=== PATIENT | female | born 1990 | race Caucasian/White ===

== ENCOUNTER 2020-07-29 10:21 | Emergency (ER) | payer OTHER, SELFPAY ==
[2020-07-29 10:28] VITALS: BP 120/70; PULSE 102; RESP 24; TEMP 36.7; O2SAT 99; BMI 31.2
[2020-07-29] MEDS: 0.9 % Sodium Chloride 1,000 ML 999 ML IVCONT (10:49)
--- NOTE | 2020-07-29 10:59 | CT_ITS ---
EXAMINATION: CT ABDOMEN AND PELVIS WITH CONTRAST CLINICAL INFORMATION: Right upper quadrant pain, nausea and vomiting COMPARISON: None TECHNIQUE: Multidetector volumetric images were obtained from the superior aspect of the liver through the pubic symphysis following administration 85 mL ofOmnipaque 350 intravenous contrast. Sagittal and coronal reformatted images were obtained on the technologist's workstation. Oral contrast: Yes This CT examination was performed using dose optimization techniques as appropriate, variously including the following: *Automated exposure control *Adjustment of mA and/or kV according to patient size (this includes techniques or standardized protocols for targeted exams where dose is matched to indication/reason for exam; i.e. extremities or head) *Use of iterative reconstruction technique DLP: 519 mGy-cm FINDINGS: LUNG BASES: The visualized lung bases are unremarkable. LIVER, GALLBLADDER, AND BILIARY TREE: The liver is normal in size, shape, and attenuation. No focal hepatic lesion or biliary ductal dilatation is present. The gallbladder is unremarkable with no evidence of radiopaque gallstones, gallbladder wall thickening, or obvious pericholecystic inflammatory changes. PANCREAS: Unremarkable. SPLEEN: Unremarkable. ADRENAL GLANDS: Unremarkable. KIDNEYS AND URETERS: The kidneys are normal in size, shape, and attenuation. No hydronephrosis, hydroureter, or calculi seen. No perinephric stranding. BLADDER: Unremarkable. GASTROINTESTINAL TRACT: There is mild wall thickening of the distal right colon, hepatic flexure and proximal transverse colon and prominent vascularity/prominent vasa recta suggestive of mild colitis. The small and large bowel is otherwise unremarkable. No evidence of obstruction, perforation or abscess is seen. The appendix is normal. The stomach is normal. ABDOMINAL WALL: No significant hernia is appreciated. LYMPH NODES: There are small lymph nodes in the small bowel mesentery. No enlarged lymph nodes are seen. There is no ascites. VASCULAR: Unremarkable. PELVIC VISCERA: Unremarkable. OSSEOUS STRUCTURES: There is degenerative disc disease at L4-L5. CT/CT abdomen pelvis w con IMPRESSION: Mild colitis of the proximal colon
[2020-07-29] MEDS: Morphine Sulfate 4 MG/ML CARTRIDGE IVPUSH (11:05)
[2020-07-29] MEDS: ondansetron HCL 4 MG/2 ML VIAL IVPUSH (11:05)
[2020-07-29 11:09] LABS: Basophils Percent Auto 0.2 % (0-2); Hematocrit 39.5 % (37-47); Hemoglobin 14.1 g/dl (12.0-16.0); Imm Gran Abs Auto 0.17 X10*3/uL (0.00-0.03); Imm Gran Pct Auto 0.7 % (0.0-0.4); Lymphocytes Percent Auto 6.6 % (20-40); Mean Corpuscular HGB Conc 35.7 g/dl (31.0-35.0); Mean Corpuscular Hemoglobin 32.8 pg (27.0-33.0); Mean Corpuscular Volume 91.9 fL (80-98); Mean Platelet Volume 8.7 fL (9.4-12.3); Monocytes Percent Auto 4.4 % (2-11); Neutrophils Absolute Auto 20.3 X10*3/uL (2.0-8.3); Neutrophils Percent Auto 88.1 % (45-73); Platelet Count 410 X10*3/uL (160-400); Red Cell Distribution Width 11.9 % (11.0-16.0)
[2020-07-29 11:10] LABS: Lymphocytes Absolute Auto 1.5 X10*3/uL (1.2-4.9); MANUAL DIFF FLAG SCAN; SCAN SMEAR FLAG 1
[2020-07-29 11:12] LABS: Prothrombin Time 12.4 SEC (10.8-13.0)
--- NOTE | 2020-07-29 11:28 | ED_ITS ---
HPI - Abdominal Pain General Chief Complaint: Abdominal Pain Stated Complaint: abd pain, vomiting Time Seen by Provider: 07/29/20 10:52 Source: patient Mode of arrival: ambulatory Limitations: no limitations History of Present Illness HPI narrative: 30yoF c No Sig PMHx or PSHx presenting to the ED c c/oi luq/ abd pain c associated N.V since 4 am. Reports she was drinking hard liquor all night. Denies recent travel or sick contacts. Denies any other symptoms complaints or concerns. Denies bad food exposure. Related Data Home Medications Medication Instructions Recorded Confirmed albuterol sulfate 2.5 mg INHALATION Q4H PRN 07/29/20 albuterol sulfate [ProAir HFA] 2 puff INHALATION Q4H PRN 07/29/20 07/29/20 fluticasone propion-salmeterol 1 inh INHALATION BID 07/29/20 [Advair Diskus] montelukast 10 mg PO BEDTIME 07/29/20 07/29/20 multivitamin [Hair,Nails and Skin 1 tab PO DAILY 07/29/20 07/29/20 Vitamin] Previous Rx's Medication Instructions Recorded naproxen 500 mg PO BID PRN #10 tab 07/29/20 ondansetron HCl [Zofran] 4 mg PO Q6H PRN #10 tab 07/29/20 oxycodone-acetaminophen [Percocet] 1 tab PO Q6H PRN #10 tab 07/29/20 Allergies Allergy/AdvReac Type Severity Reaction Status Date / Time No Known Allergies Allergy Verified 07/29/20 10:32 [No Known Allergies*] Review of Systems Review of Systems Constitutional : No Fever, No Chills Cardiovascular : No Chest Pain, No SOB Respiratory : No Cough, No Sputum Gastrointestinal : + Nausea, + Vomiting, + abdominal pain, No Diarrhea, No Hematochezia, No Melena Genitourinary : no irregular bleeding, No Dysuria, No Urinary Frequency, No Hematuria, No Urinary Incontinence, No Urgency, No Flank Pain Musculoskeletal : No joint pain, No Myalgias, No Joint Swelling Skin : No Skin Lesions, No rash Neuro : No Weakness, No Headache Heme/Lymph: No Lymphadenopathy Endocrine : No Temperature Intolerance Yes all other systems are reviewed and are negative Physical Exam Vital Signs: Vital Signs: Vital Signs Temp Pulse Resp BP Pulse Ox 07/29/20 10:28 98.0 F 102 H 24 H 120/70 99 Body Mass Index 31.2 vital signs have been reviewed as normal and appeared to be correct. Blood pressure normal. Heart rate normal. Respiration rate normal. Temperature normal. Oxygen saturation normal. Appearance: Alert. Oriented X3. very anxious reporting severe pain. Otherwise in no other acute distress. Head: Normal external exam. Normocephalic. Eyes: PERRLA. EOMI. Conjunctiva and sclera normal. Eyelids normal. ENT: Pharynx normal. Uvula midline. Moist mucous membranes. Neck: Normal inspection. Neck supple. FROM. No meningeal signs. CVS: Normal heart rate and rhythm. Heart sound normal. No murmurs noted. Pulses normal throughout. Respiratory: No respiratory distress. Painless inspiration. Breath sounds normal. No wheezes/rales/rhonchi noted. Chest nontender. No accessory muscle usage noted or decreased air movement noted. Abdomen: Soft and TTP of luq and diffusely throughout. Bowel sounds normal in all 4 quadrants. No distention noted. No organomegaly noted. No visible injury noted. Back: No CVA tenderness. Full range of motion noted. Skin: Skin warm and dry. Normal skin color. Normal skin turgor. No rashes/lesions/lacerations noted. Extremities: Extremities exhibit normal range of motion. Extremities nontender. Neuro: Oriented X 3. No motor deficit. No sensory deficit. Reflexes normal. Course Course Course Narrative: 11AM 30yoF c No Sig PMHx or PSHx presenting to the ED c c/oi luq/ abd pain c associated N.V since 4 am. Reports she was drinking hard liquor all night. - Concern for pancreatitis versus cholecystitis - Plan: Labs, blood cultures, lactic acid, ct scan of abd/pelvis c IV contrast. Provide a L of IV fluids, 4 mg of Zofran, 4 mg of morphine and 25 mg of Benadryl and 3/375 mg og zosyn due to tachycardia and tachypnea then re-evaluate. Although I do not believe this is sepsis most likely related to alcohol intake, dehydration, multiple episodes of N/V along with anxiety. Reevaluation(s) Reevaluation #1: Patient in room in no apparent distress. Reports she is more comfortable after the [place] [address]. Carbon Dioxide at 15. Anion Gap at 26. Although ETOH level <10 and blood glucose is 115. lactic acid returned at 4.2. - Although again I do not believe this is sepsis I believe this is alcohol induced dehydration (alcoholic ketoacidosis) c cyclic vomiting. - Patient already received 1 L of IV fluids I will give D 50 normal saline at 100 hour and obtain the acetone level along with a venous blood glass then re-evaluate. Time: 12:05 Reevaluation #2: - CT scan revealed mild colitis otherwise the rest of the scan was within normal limits including the pancreas. - awaiting VBG and acetone will re-evaluate. Time: 13:18 Reevaluation #3: - Venous blood gas within normal limits. Awaiting acetone level. - patient is tolerating p.o. has as for toro all twice already. Will continue to allow patient to eat and drink and will recheck a chemistry for anion gap and carbon dioxide levels. Patient understands agrees with this plan. Time: 13:35 Additional Reevaluation(s): Repeat basic metabolic panel has improved patient's carbon dioxide is now at 23 and anion gap at 15 therefore within normal limits. Patient is tolerating p.o.. Comfortable with p.o. oxycodone. Patient was offered admission although she had declined. Will DC home with symptomatic treatment along with instructions to return if any new or worsening symptoms to follow with primary care provider. MDM - Abdominal Pain Medical Records Attestation: I reviewed the patient's medical records. Lab Data Attestation: I reviewed the patient's lab results. Result diagrams: 07/29/20 11:07/29/20 14:44 Labs: Lab Results 07/29/20 07/29/20 07/29/20 Range/Units 11:01 11: 11: WBC 23.0 H (4.8-10.8) X10*3/uL RBC 4.30 (4.20-5.50) X10*6/uL Hgb 14.1 (12.0-16.0) g/dl Hct 39.5 (37-47) % MCV 91.9 (80-98) fL MCH 32.8 (27.0-33.0) pg MCHC 35.7 H (31.0-35.0) g/dl RDW 11.9 (11.0-16.0) % Plt Count 410 H (160-400) X10*3/uL MPV 8.7 L (9.4-12.3) fL Immature Gran % (Auto) 0.7 H (0.0-0.4) % Neut % (Auto) 88.1 H (45-73) % Lymph % (Auto) 6.6 L (20-40) % [place] % (Auto) 4.4 (2-11) % Eos % (Auto) 0.0 (0-4) % Baso % (Auto) 0.2 (0-2) % Lymph # (Auto) 1.5 (1.2-4.9) X10*3/uL [place] # (Auto) 1.0 (0.1-1.2) X10*3/uL Eos # (Auto) 0.0 (0.0-0.4) X10*3/uL Baso # (Auto) 0.0 (0.0-0.2) X10*3/uL Abs Immat Gran (auto) 0.17 H (0.00-0.03) X10*3/uL Absolute Neuts (auto) 20.3 H (2.0-8.3) X10*3/uL Absolute Nucleated RBC 0.000 (0.0-0.012) X10*3/uL Nucleated RBC % (auto) 0.0 (0.0-0.2) /100WBC Smear Tech's Comments VERIFIED PT 12.4 (10.8-13.0) SEC INR 1.0 (0.9-1.1) VBG pH (7.32-7.43) VBG pCO2 mmhg VBG Oxygen Liters/Min VBG pO2 mmhg VBG HCO3 mmol/L VBG O2 Saturation % VBG Base Excess mmol/L Sodium 144 (135-145) mmol/L Potassium 4.4 (3.3-5.1) mmol/l Chloride 107 (96-108) mmol/L Carbon Dioxide 15 L (22-29) mmol/L Anion Gap 26 H (12-20) BUN 15 (9-16) mg/dL Creatinine 0.81 (0.5-1.4) mg/dL Estim Creat Clear Calc 88.7 Estimated GFR > 60 Random Glucose 115 (60-115) mg/dL Lactic Acid (0.5-2.0) mmol/L Lactic Acid Fup @ 2Hr (0.5-2.0) mmol/L Calcium 9.5 (8.4-10.2) mg/dL Magnesium 1.7 (1.6-2.6) mg/dL Total Bilirubin 0.3 (0.0-1.0) mg/dL Direct Bilirubin 0.2 (0.0-0.5) mg/dL AST 32 H (5-31) U/L ALT 22 (0-31) U/L Alkaline Phosphatase 67 (39-117) U/L Lactate Dehydrogenase Cancelled Total Protein 8.9 H (6.5-8.0) g/dL Albumin 5.0 (3.5-5.0) g/dL Amylase 45 (28-100) U/L Lipase 14 (8-78) U/L Beta HCG, Quant < 2 mIU/mL Urine Color Urine Appearance Urine pH (5.0-8.0) Ur Specific [place] (1.005-1.025) Urine Protein (NEG-TRACE) MG/DL Urine Glucose (UA) (NEG) MG/DL Urine Ketones (NEG) MG/DL Urine Blood (NEG) Urine Nitrite (NEG) Ur Leukocyte Esterase (NEG) Urine RBC (0) /HPF Urine WBC (0-4) /HPF Ur Squamous Epith Cells /LPF Urine Bacteria /LPF Urine Opiates Screen (Not Detect) Ur Barbiturates Screen (Not Detect) Ur Phencyclidine Scrn (Not Detect) Ur Amphetamines Screen (Not Detect) U Benzodiazepines Scrn (Not Detect) Urine Cocaine Screen (Not Detect) U Marijuana (THC) Screen (Not Detect) Ethyl Alcohol mg/dL Acetone, Qual (Negative) 07/29/20 07/29/20 07/29/20 Range/Units 11:04 11:22 11:22 WBC (4.8-10.8) X10*3/uL RBC (4.20-5.50) X10*6/uL Hgb (12.0-16.0) g/dl Hct (37-47) % MCV (80-98) fL MCH (27.0-33.0) pg MCHC (31.0-35.0) g/dl RDW (11.0-16.0) % Plt Count (160-400) X10*3/uL MPV (9.4-12.3) fL Immature Gran % (Auto) (0.0-0.4) % Neut % (Auto) (45-73) % Lymph % (Auto) (20-40) % [place] % (Auto) (2-11) % Eos % (Auto) (0-4) % Baso % (Auto) (0-2) % Lymph # (Auto) (1.2-4.9) X10*3/uL [place] # (Auto) (0.1-1.2) X10*3/uL Eos # (Auto) (0.0-0.4) X10*3/uL Baso # (Auto) (0.0-0.2) X10*3/uL Abs Immat Gran (auto) (0.00-0.03) X10*3/uL Absolute Neuts (auto) (2.0-8.3) X10*3/uL Absolute Nucleated RBC (0.0-0.012) X10*3/uL Nucleated RBC % (auto) (0.0-0.2) /100WBC Smear Tech's Comments PT (10.8-13.0) SEC INR (0.9-1.1) VBG pH (7.32-7.43) VBG pCO2 mmhg VBG Oxygen Liters/Min VBG pO2 mmhg VBG HCO3 mmol/L VBG O2 Saturation % VBG Base Excess mmol/L Sodium Cancelled (135-145) mmol/L Potassium Cancelled (3.3-5.1) mmol/l Chloride Cancelled (96-108) mmol/L Carbon Dioxide Cancelled (22-29) mmol/L Anion Gap Cancelled (12-20) BUN Cancelled (9-16) mg/dL Creatinine Cancelled (0.5-1.4) mg/dL Estim Creat Clear Calc Cancelled Estimated GFR Cancelled Random Glucose Cancelled (60-115) mg/dL Lactic Acid 4.2 H* (0.5-2.0) mmol/L Lactic Acid Fup @ 2Hr (0.5-2.0) mmol/L Calcium Cancelled (8.4-10.2) mg/dL Magnesium Cancelled (1.6-2.6) mg/dL Total Bilirubin Cancelled (0.0-1.0) mg/dL Direct Bilirubin Cancelled (0.0-0.5) mg/dL AST Cancelled (5-31) U/L ALT Cancelled (0-31) U/L Alkaline Phosphatase Cancelled (39-117) U/L Lactate Dehydrogenase Total Protein Cancelled (6.5-8.0) g/dL Albumin Cancelled (3.5-5.0) g/dL Amylase (28-100) U/L Lipase (8-78) U/L Beta HCG, Quant mIU/mL Urine Color Urine Appearance Urine pH (5.0-8.0) Ur Specific [place] (1.005-1.025) Urine Protein (NEG-TRACE) MG/DL Urine Glucose (UA) (NEG) MG/DL Urine Ketones (NEG) MG/DL Urine Blood (NEG) Urine Nitrite (NEG) Ur Leukocyte Esterase (NEG) Urine RBC (0) /HPF Urine WBC (0-4) /HPF Ur Squamous Epith Cells /LPF Urine Bacteria /LPF Urine Opiates Screen (Not Detect) Ur Barbiturates Screen (Not Detect) Ur Phencyclidine Scrn (Not Detect) Ur Amphetamines Screen (Not Detect) U Benzodiazepines Scrn (Not Detect) Urine Cocaine Screen (Not Detect) U Marijuana (THC) Screen (Not Detect) Ethyl Alcohol < 10 mg/dL Acetone, Qual (Negative) 07/29/20 07/29/20 07/29/20 Range/Units 13:11 13:11 13:51 WBC (4.8-10.8) X10*3/uL RBC (4.20-5.50) X10*6/uL Hgb (12.0-16.0) g/dl Hct (37-47) % MCV (80-98) fL MCH (27.0-33.0) pg MCHC (31.0-35.0) g/dl RDW (11.0-16.0) % Plt Count (160-400) X10*3/uL MPV (9.4-12.3) fL Immature Gran % (Auto) (0.0-0.4) % Neut % (Auto) (45-73) % Lymph % (Auto) (20-40) % [place] % (Auto) (2-11) % Eos % (Auto) (0-4) % Baso % (Auto) (0-2) % Lymph # (Auto) (1.2-4.9) X10*3/uL [place] # (Auto) (0.1-1.2) X10*3/uL Eos # (Auto) (0.0-0.4) X10*3/uL Baso # (Auto) (0.0-0.2) X10*3/uL Abs Immat Gran (auto) (0.00-0.03) X10*3/uL Absolute Neuts (auto) (2.0-8.3) X10*3/uL Absolute Nucleated RBC (0.0-0.012) X10*3/uL Nucleated RBC % (auto) (0.0-0.2) /100WBC Smear Tech's Comments PT (10.8-13.0) SEC INR (0.9-1.1) VBG pH 7.40 (7.32-7.43) VBG pCO2 36 mmhg VBG Oxygen Liters/Min Not Reportable VBG pO2 69 mmhg VBG HCO3 22 mmol/L VBG O2 Saturation 92.4 % VBG Base Excess -2.5 mmol/L Sodium (135-145) mmol/L Potassium (3.3-5.1) mmol/l Chloride (96-108) mmol/L Carbon Dioxide (22-29) mmol/L Anion Gap (12-20) BUN (9-16) mg/dL Creatinine (0.5-1.4) mg/dL Estim Creat Clear Calc Estimated GFR Random Glucose (60-115) mg/dL Lactic Acid (0.5-2.0) mmol/L Lactic Acid Fup @ 2Hr (0.5-2.0) mmol/L Calcium (8.4-10.2) mg/dL Magnesium (1.6-2.6) mg/dL Total Bilirubin (0.0-1.0) mg/dL Direct Bilirubin (0.0-0.5) mg/dL AST (5-31) U/L ALT (0-31) U/L Alkaline Phosphatase (39-117) U/L Lactate Dehydrogenase Total Protein (6.5-8.0) g/dL Albumin (3.5-5.0) g/dL Amylase (28-100) U/L Lipase (8-78) U/L Beta HCG, Quant mIU/mL Urine Color YELLOW Urine Appearance HAZY Urine pH 6.0 (5.0-8.0) Ur Specific [place] 1.010 (1.005-1.025) Urine Protein NEG (NEG-TRACE) MG/DL Urine Glucose (UA) NEG (NEG) MG/DL Urine Ketones 40 (NEG) MG/DL Urine Blood TRACE (NEG) Urine Nitrite NEG (NEG) Ur Leukocyte Esterase NEG (NEG) Urine RBC 1-4 (0) /HPF Urine WBC 1-4 (0-4) /HPF Ur Squamous Epith Cells 2+ /LPF Urine Bacteria NONE /LPF Urine Opiates Screen (Not Detect) Ur Barbiturates Screen (Not Detect) Ur Phencyclidine Scrn (Not Detect) Ur Amphetamines Screen (Not Detect) U Benzodiazepines Scrn (Not Detect) Urine Cocaine Screen (Not Detect) U Marijuana (THC) Screen (Not Detect) Ethyl Alcohol mg/dL Acetone, Qual Negative (Negative) 07/29/20 07/29/20 07/29/20 Range/Units 13:51 14:44 14:44 WBC (4.8-10.8) X10*3/uL RBC (4.20-5.50) X10*6/uL Hgb (12.0-16.0) g/dl Hct (37-47) % MCV (80-98) fL MCH (27.0-33.0) pg MCHC (31.0-35.0) g/dl RDW (11.0-16.0) % Plt Count (160-400) X10*3/uL MPV (9.4-12.3) fL Immature Gran % (Auto) (0.0-0.4) % Neut % (Auto) (45-73) % Lymph % (Auto) (20-40) % [place] % (Auto) (2-11) % Eos % (Auto) (0-4) % Baso % (Auto) (0-2) % Lymph # (Auto) (1.2-4.9) X10*3/uL [place] # (Auto) (0.1-1.2) X10*3/uL Eos # (Auto) (0.0-0.4) X10*3/uL Baso # (Auto) (0.0-0.2) X10*3/uL Abs Immat Gran (auto) (0.00-0.03) X10*3/uL Absolute Neuts (auto) (2.0-8.3) X10*3/uL Absolute Nucleated RBC (0.0-0.012) X10*3/uL Nucleated RBC % (auto) (0.0-0.2) /100WBC Smear Tech's Comments PT (10.8-13.0) SEC INR (0.9-1.1) VBG pH (7.32-7.43) VBG pCO2 mmhg VBG Oxygen Liters/Min VBG pO2 mmhg VBG HCO3 mmol/L VBG O2 Saturation % VBG Base Excess mmol/L Sodium 140 (135-145) mmol/L Potassium 3.9 (3.3-5.1) mmol/l Chloride 106 (96-108) mmol/L Carbon Dioxide 23 (22-29) mmol/L Anion Gap 15 (12-20) BUN 13 (9-16) mg/dL Creatinine 0.82 (0.5-1.4) mg/dL Estim Creat Clear Calc 87.6 Estimated GFR > 60 Random Glucose 153 H (60-115) mg/dL Lactic Acid (0.5-2.0) mmol/L Lactic Acid Fup @ 2Hr 2.2 H* (0.5-2.0) mmol/L Calcium 8.0 L (8.4-10.2) mg/dL Magnesium (1.6-2.6) mg/dL Total Bilirubin (0.0-1.0) mg/dL Direct Bilirubin (0.0-0.5) mg/dL AST (5-31) U/L ALT (0-31) U/L Alkaline Phosphatase (39-117) U/L Lactate Dehydrogenase Total Protein (6.5-8.0) g/dL Albumin (3.5-5.0) g/dL Amylase (28-100) U/L Lipase (8-78) U/L Beta HCG, Quant mIU/mL Urine Color Urine Appearance Urine pH (5.0-8.0) Ur Specific [place] (1.005-1.025) Urine Protein (NEG-TRACE) MG/DL Urine Glucose (UA) (NEG) MG/DL Urine Ketones (NEG) MG/DL Urine Blood (NEG) Urine Nitrite (NEG) Ur Leukocyte Esterase (NEG) Urine RBC (0) /HPF Urine WBC (0-4) /HPF Ur Squamous Epith Cells /LPF Urine Bacteria /LPF Urine Opiates Screen POSITIVE H (Not Detect) Ur Barbiturates Screen Not Detected (Not Detect) Ur Phencyclidine Scrn Not Detected (Not Detect) Ur Amphetamines Screen Not Detected (Not Detect) U Benzodiazepines Scrn Not Detected (Not Detect) Urine Cocaine Screen Not Detected (Not Detect) U Marijuana (THC) Screen POSITIVE H (Not Detect) Ethyl Alcohol mg/dL Acetone, Qual (Negative) Imaging Data CT scan - abdomen: Attestation: I personally reviewed and interpreted this imaging study as follows: Radiologist's impression: FINDINGS: LUNG BASES: The visualized lung bases are unremarkable. LIVER, GALLBLADDER, AND BILIARY TREE: The liver is normal in size, shape, and attenuation. No focal hepatic lesion or biliary ductal dilatation is present. The gallbladder is unremarkable with no evidence of radiopaque gallstones, gallbladder wall thickening, or obvious pericholecystic inflammatory changes. PANCREAS: Unremarkable. SPLEEN: Unremarkable. ADRENAL GLANDS: Unremarkable. KIDNEYS AND URETERS: The kidneys are normal in size, shape, and attenuation. No hydronephrosis, hydroureter, or calculi seen. No perinephric stranding. BLADDER: Unremarkable. GASTROINTESTINAL TRACT: There is mild wall thickening of the distal right colon, hepatic flexure and proximal transverse colon and prominent vascularity/prominent vasa recta suggestive of mild colitis. The small and large bowel is otherwise unremarkable. No evidence of obstruction, perforation or abscess is seen. The appendix is normal. The stomach is normal. ABDOMINAL WALL: No significant hernia is appreciated. LYMPH NODES: There are small lymph nodes in the small bowel mesentery. No enlarged lymph nodes are seen. There is no ascites. VASCULAR: Unremarkable. PELVIC VISCERA: Unremarkable. OSSEOUS STRUCTURES: There is degenerative disc disease at L4-L5. CT/CT abdomen pelvis w con IMPRESSION: Mild colitis of the proximal colon Critical Care Time Critical Care Time Critical Care Time: Yes Total Critical Care Time: 60 Attestation: I personally attest to this time spent taking care of the patient Discharge Plan Discharge Clinical Impression: Alcoholic ketoacidosis, Tachycardia, Leukocytosis Patient Disposition: Home, Self-Care Instructions: At-Risk Alcohol Use (ED) Prescriptions: New oxycodone-acetaminophen [Percocet] 5-325 mg tablet 1 tab PO Q6H PRN (Reason: pain) Qty: 10 RF: 0 naproxen 500 mg tablet 500 mg PO BID PRN (Reason: pain) Qty: 10 RF: 0 ondansetron HCl [Zofran] 4 mg tablet 4 mg PO Q6H PRN (Reason: nausea and vomiting) Qty: 10 RF: 0 No Action multivitamin [Hair,Nails and Skin Vitamin] Tablet 1 tab PO DAILY RF: 0 montelukast 10 mg Tablet 10 mg PO BEDTIME RF: 0 albuterol sulfate [ProAir HFA] 90 mcg/actuation Hfa Aerosol Inhaler 2 puff INHALATION Q4H PRN (Reason: Shortness Of Breath) RF: 0 albuterol sulfate 2.5 mg /3 mL (0.083 %) Solution For Nebulization 2.5 mg INHALATION Q4H PRN (Reason: Shortness Of Breath) RF: 0 fluticasone propion-salmeterol [Advair Diskus] 100-50 mcg/dose Blister With Device 1 inh INHALATION BID RF: 0 Referrals: Physician,Unknown [Primary Care Provider] - 2 days (Your primary care provider) Stand Alone Forms: Work/School Release Print Language: [place]riot [facility] Past Medical History Attestation statement: The following information was validated with the patient. Medical History No significant past medical history Surgical History No significant past surgical history Social History Social History Alcohol intake: current Alcohol intake frequency: holidays/special occasions on ly Smoking Status: Current every day smoker Use of substances other than those prescribed or required for medical reasons: No Substance Use Type: Marijuana Advance Directives: No Advance Directives Information Provided: No
[2020-07-29 11:34] LABS: SLIDE REVIEW VERIFIED
[2020-07-29 11:48] LABS: Alanine Aminotransferase 22 U/L (0-31); Alkaline Phosphatase 67 U/L (39-117); Anion Gap 26 (12-20); Aspartate Amino Transferase 32 U/L (5-31); Bilirubin Direct 0.2 mg/dL (0.0-0.5); Bilirubin Total 0.3 mg/dL (0.0-1.0); Blood Urea Nitrogen 15 mg/dL (9-16); Calcium 9.5 mg/dL (8.4-10.2); Carbon Dioxide 15 mmol/L (22-29); Chloride 107 mmol/L (96-108); Creatinine Clr Calc Pharmacy 88.7; Estimated Glomerular Filt Rate > 60; Glucose Random 115 mg/dL (60-115); HCG Quantitative < 2 mIU/mL; Magnesium 1.7 mg/dL (1.6-2.6); Potassium 4.4 mmol/l (3.3-5.1); Sodium 144 mmol/L (135-145); Total Protein 8.9 g/dL (6.5-8.0)
[2020-07-29] MEDS: Piperacillin Sodium/Tazobactam 3.375 GM in 0.9 % Sodium Chloride 50 ML IV (11:48)
[2020-07-29] MEDS: diphenhydrAMINE HCL 50 MG/ML VIAL 25 MG IVPUSH (11:48)
[2020-07-29 11:54] LABS: Ethanol < 10 mg/dL
[2020-07-29 12:00] LABS: Lactic Acid 4.2 mmol/L (0.5-2.0)
[2020-07-29 12:19] LABS: Amylase 45 U/L (28-100); Lipase 14 U/L (8-78)
[2020-07-29] MEDS: iohexoL 350 MG/ML 100 ML INFUS..BTL 85 ML IV (12:40)
[2020-07-29] MEDS: Dextrose 5 % and 0.9 % NaCl 1,000 ML 100 ML IVCONT (13:13)
[2020-07-29 13:25] LABS: Base Excess VBG -2.5 mmol/L; HCO3 VBG 22 mmol/L; PCO2 VBG 36 mmhg; PO2 VBG 69 mmhg
[2020-07-29 13:26] LABS: Blood Gas Serial # 5414; Oxygen Saturation VBG 92.4 %
[2020-07-29 13:28] LABS: Reflex Lactate? Lactic Acid Added
[2020-07-29 14:01] LABS: Acetone, serum QL Negative (Negative)
[2020-07-29 14:03] LABS: Glucose Urine UA NEG (NEG); Leukocyte Esterase Urine NEG (NEG); Nitrite Urine NEG (NEG); Urine Blood TRACE (NEG); Urine Ketones 40 MG/DL (NEG); Urine Protein NEG (NEG-TRACE)
[2020-07-29 14:06] LABS: Appearance Urine HAZY; Color Urine YELLOW
[2020-07-29 14:12] LABS: Squamous Epithelial Cell Urine 2+ /LPF
[2020-07-29] MEDS: oxyCODONE HCl Immed Release 5 MG TABLET PO (14:25)
[2020-07-29] MEDS: Ketorolac Tromethamine 15 MG/ML VIAL 30 MG IV (14:25)
[2020-07-29 14:40] LABS: Amphetamine Screen Urine Not Detected (Not Detect); Barbiturates, Urine Not Detected (Not Detect); Benzodiazepines Screen Urine Not Detected (Not Detect); Cannabinoid Screen Urine POSITIVE (Not Detect); Cocaine Screen Urine Not Detected (Not Detect); Opiate Screen Urine POSITIVE (Not Detect); Phencyclidine Screen Urine Not Detected (Not Detect)
[2020-07-29 15:14] LABS: ~Lactic Acid-LAB USE ONLY 2.2 mmol/L (0.5-2.0)
[2020-07-29 15:17] LABS: Anion Gap 15 (12-20); Blood Urea Nitrogen 13 mg/dL (9-16); Carbon Dioxide 23 mmol/L (22-29); Chloride 106 mmol/L (96-108); Creatinine Clr Calc Pharmacy 87.6; Estimated Glomerular Filt Rate > 60; Glucose Random 153 mg/dL (60-115); Potassium 3.9 mmol/l (3.3-5.1); Sodium 140 mmol/L (135-145)
[2020-07-29 16:48] LABS: Reflex Lactate? 2 Y
== END 2020-07-29 15:57 | disposition home or self-care (01) ==
PROVIDERS: Physician Assistant Medical; Emergency Provider Emergency Medicine
DX: E87.2 Acidosis (principal); R00.0 Tachycardia, unspecified; D72.829 Elevated white blood cell count, unspecified; R10.12 Left upper quadrant pain; Z79.899 Other long term (current) drug therapy; F17.200 Nicotine dependence, unspecified, uncomplicated; Z71.6 Tobacco abuse counseling
CPT/HCPCS: 36415; 74177; 80048; 80076; 80307; 80320; 81001; 81003; 82009; 82150; 82803; 83605; 83690; 83735; 84702; 85025; 85610; 87040; 96361; 96365; 96375; 99284; 99291; J1200; J1885; J2270; J2405; J2543; Q9967

== ENCOUNTER 2020-12-22 11:56 | Emergency (ER) | payer OTHER, SELFPAY ==
--- NOTE | ~2020-12-22 | XR_ITS ---
EXAMINATION: XR CHEST CLINICAL INFORMATION: Chest pain. COMPARISON: None TECHNIQUE: Frontal view of the chest was obtained. FINDINGS: No significant abnormality is noted involving the heart, lungs, mediastinum, bony thorax or soft tissues. XR/XR chest 1V IMPRESSION: Unremarkable chest examination.
[2020-12-22 12:50] VITALS: BP 104/72; PULSE 78; RESP 16; TEMP 36.7; O2SAT 99; BMI 36.6
--- NOTE | 2020-12-22 13:42 | ED.GENADULT ---
HPI - General Adult General Chief complaint: Nausea/Vomiting/Diarrhea Stated complaint: DIFF BREATHING Time Seen by Provider: 12/22/20 13:17 History of Present Illness HPI narrative: Two complaints 1 is nausea vomiting and diarrhea for 2 days, 2nd is lots of anxiety with intermittent feelings of chest tightness shortness of breath and fingers tingling as well as abdominal pain mostly when she vomits She has no abdominal pain at this point in time She also has complained of episodes of feeling anxious with chest tightness palpitations heart racing and fingers tingling At this time she has no chest pain no shortness of breath no palpitation, but does feel very anxious Related Data Home Medications Medication Instructions Recorded Confirmed albuterol sulfate 2.5 mg INHALATION Q4H PRN 07/29/20 albuterol sulfate [ProAir HFA] 2 puff INHALATION Q4H PRN 07/29/20 07/29/20 fluticasone propion-salmeterol 1 inh INHALATION BID 07/29/20 [Advair Diskus] montelukast 10 mg PO BEDTIME 07/29/20 07/29/20 multivitamin [Hair,Nails and Skin 1 tab PO DAILY 07/29/20 07/29/20 Vitamin] Previous Rx's Medication Instructions Recorded naproxen 500 mg PO BID PRN #10 tab 07/29/20 ondansetron HCl [Zofran] 4 mg PO Q6H PRN #10 tab 07/29/20 oxycodone-acetaminophen [Percocet] 1 tab PO Q6H PRN #10 tab 07/29/20 acetaminophen [Tylenol] 650 mg PO Q6H PRN #20 cap 12/22/20 famotidine [Pepcid] 20 mg PO BID #30 tab 12/22/20 loperamide [Imodium A-D] 2 mg PO Q4H PRN #10 cap 12/22/20 lorazepam [Ativan] 1 mg PO TID PRN #10 tab 12/22/20 metoclopramide HCl [Reglan] 10 mg PO Q6H PRN #10 tab 12/22/20 oxycodone-acetaminophen [Percocet] 1 tab PO Q6H PRN #7 tab 12/22/20 Allergies Allergy/AdvReac Type Severity Reaction Status Date / Time No Known Allergies Allergy Verified 07/29/20 10:32 [No Known Allergies*] Review of Systems Review of Systems: Positive for intermittent and shortness of breath and anxiety as well as nausea vomiting and diarrhea Negatives are no fever no chills no dizziness no weakness no fainting no headache no neck pain no chest pain no dysuria no burning with urination no rash no numbness no weakness PMFSH Past Medical History Source: nursing notes reviewed Medical History No significant past medical history Surgical History No significant past surgical history Social History Social History Alcohol intake: never Smoking Status: Never smoker Use of substances other than those prescribed or required for medical reasons: Yes Substance Use Type: Marijuana Substance Use Frequency: Chronic Longstanding Last Used Substance: Days (ago) Advance Directives: No Advance Directives Information Provided: No Physical Exam Vital Signs: Vital Signs: Last Vital Signs Temp 98.0 F 12/22/20 12:50 Pulse 78 12/22/20 12:50 Resp 16 12/22/20 12:50 BP 104/72 12/22/20 12:50 Pulse Ox 99 12/22/20 12:50 Body Mass Index 36.6 General appearance is no acute distress, , very anxious appearing, cooperative A&O x3 The pupils are anicteric without pallor The pharynx is clear with well-hydrated mucous membranes Neck is supple Chest is clear to auscultation bilaterally with full symmetric equal breath sounds The heart rate and rhythm regular no murmur The abdomen is soft nontender Extremities no edema, no calf tenderness or swelling, full range of motion x4 The skin no rashes Neuro no focal deficit Course Course Course Narrative: Patient felt very nauseous again in the ER and vomited so was treated with Zofran and a L of fluids with no improvement, and then she began to have burning pain in her upper stomach so meds were changed to Reglan and Pepcid with very good results as well as an Ativan for her anxiety and she felt like she had returned to normal She no longer had any feeling of anxiety she was able to tolerate p.o. without nausea she had no abdominal pain and repeat abdominal exam was negative and vital signs were normal she was discharged home with Reglan for nausea, Pepcid for if she develops any burning stomach pain, and Ativan if needed for anxiety attack No acute lab abnormality, UA was negative, she is not and a chest x-ray was normal Medical Decision Making Lab Data Lab results reviewed: Yes I reviewed the patient's lab results. Result diagrams: 12/22/20 14:20 12/22/20 14:20 Labs: Lab Results 12/22/20 12/22/20 Range/Units 14:20 14:20 WBC 19.7 H (4.8-10.8) X10*3/uL RBC 3.96 L (4.20-5.50) X10*6/uL Hgb 13.1 (12.0-16.0) g/dl Hct 36.6 L (37-47) % MCV 92.4 (80-98) fL MCH 33.1 H (27.0-33.0) pg MCHC 35.8 H (31.0-35.0) g/dl RDW 12.0 (11.0-16.0) % Plt Count 413 H (160-400) X10*3/uL MPV 8.7 L (9.4-12.3) fL Immature Gran % (Auto) 0.6 H (0.0-0.4) % Neut % (Auto) 84.6 H (45-73) % Lymph % (Auto) 6.8 L (20-40) % [place] % (Auto) 7.7 (2-11) % Eos % (Auto) 0.1 (0-4) % Baso % (Auto) 0.2 (0-2) % Lymph # (Auto) 1.4 (1.2-4.9) X10*3/uL [place] # (Auto) 1.5 H (0.1-1.2) X10*3/uL Eos # (Auto) 0.0 (0.0-0.4) X10*3/uL Baso # (Auto) 0.0 (0.0-0.2) X10*3/uL Abs Immat Gran (auto) 0.11 H (0.00-0.03) X10*3/uL Absolute Neuts (auto) 16.7 H (2.0-8.3) X10*3/uL Absolute Nucleated RBC 0.000 (0.0-0.012) X10*3/uL Nucleated RBC % (auto) 0.0 (0.0-0.2) /100WBC Smear Tech's Comments VERIFIED Sodium 143 (135-145) mmol/L Potassium 4.0 (3.3-5.1) mmol/L Chloride 107 (96-108) mmol/L Carbon Dioxide 20 L (22-29) mmol/L Anion Gap 20 (12-20) BUN 17 H (9-16) mg/dL Creatinine 0.85 (0.5-1.4) mg/dL Estim Creat Clear Calc 99.5 Estimated GFR > 60 Random Glucose 127 H (60-115) mg/dL Calcium 10.2 D (8.4-10.2) mg/dL Total Bilirubin 0.7 (0.0-1.0) mg/dL Direct Bilirubin 0.2 (0.0-0.5) mg/dL AST 22 (5-31) U/L ALT 19 (0-31) U/L Alkaline Phosphatase 73 (39-117) U/L Total Protein 8.2 H (6.5-8.0) g/dL Albumin 4.8 (3.5-5.0) g/dL Lipase 16 (8-78) U/L Discharge Plan Discharge Clinical Impression: Gastroenteritis, Anxiety, Abdominal pain Patient Disposition: Home, Self-Care Additional Instructions: Your workup today did not show any sign of any dangerous condition We treated for nausea with Reglan which controlled the vomiting, Pepcid which helped the acid pain, and Ativan which helped the anxiety Use prescriptions as directed Follow with primary doctor Return any time any worse condition or concerns Prescriptions: New famotidine [Pepcid] 20 mg tablet 20 mg PO BID Qty: 30 RF: 0 oxycodone-acetaminophen [Percocet] 5-325 mg tablet 1 tab PO Q6H PRN (Reason: pain) Qty: 7 RF: 0 lorazepam [Ativan] 1 mg tablet 1 mg PO TID PRN (Reason: anxiety) Qty: 10 RF: 0 metoclopramide HCl [Reglan] 10 mg tablet 10 mg PO Q6H PRN (Reason: nausea and vomiting) Qty: 10 RF: 0 loperamide [Imodium A-D] 2 mg capsule 2 mg PO Q4H PRN (Reason: loose stool) Qty: 10 RF: 0 acetaminophen [Tylenol] 325 mg capsule 650 mg PO Q6H PRN (Reason: pain) Qty: 20 RF: 0 No Action multivitamin [Hair,Nails and Skin Vitamin] Tablet 1 tab PO DAILY RF: 0 montelukast 10 mg Tablet 10 mg PO BEDTIME RF: 0 albuterol sulfate [ProAir HFA] 90 mcg/actuation Hfa Aerosol Inhaler 2 puff INHALATION Q4H PRN (Reason: Shortness Of Breath) RF: 0 albuterol sulfate 2.5 mg /3 mL (0.083 %) Solution For Nebulization 2.5 mg INHALATION Q4H PRN (Reason: Shortness Of Breath) RF: 0 fluticasone propion-salmeterol [Advair Diskus] 100-50 mcg/dose Blister With Device 1 inh INHALATION BID RF: 0 oxycodone-acetaminophen [Percocet] 5-325 mg tablet 1 tab PO Q6H PRN (Reason: pain) Qty: 10 RF: 0 naproxen 500 mg tablet 500 mg PO BID PRN (Reason: pain) Qty: 10 RF: 0 ondansetron HCl [Zofran] 4 mg tablet 4 mg PO Q6H PRN (Reason: nausea and vomiting) Qty: 10 RF: 0 Interventions: ED Discharge Assessment Last Done: 12/22/20 17:49 Discharge Date/Time: 12/22/20 17:52
[2020-12-22] MEDS: 0.9 % Sodium Chloride 1,000 ML 999 ML IVCONT (14:26)
[2020-12-22] MEDS: ondansetron HCL 4 MG/2 ML VIAL IVPUSH (14:26)
[2020-12-22] MEDS: LORazepam 2 MG/ML VIAL 1 MG IVPUSH (14:26)
[2020-12-22 14:36] LABS: Basophils Percent Auto 0.2 % (0-2); Eosinophils Percent Auto 0.1 % (0-4); Hematocrit 36.6 % (37-47); Hemoglobin 13.1 g/dl (12.0-16.0); Imm Gran Abs Auto 0.11 X10*3/uL (0.00-0.03); Imm Gran Pct Auto 0.6 % (0.0-0.4); Lymphocytes Absolute Auto 1.4 X10*3/uL (1.2-4.9); Lymphocytes Percent Auto 6.8 % (20-40); MANUAL DIFF FLAG SCAN; Mean Corpuscular HGB Conc 35.8 g/dl (31.0-35.0); Mean Corpuscular Hemoglobin 33.1 pg (27.0-33.0); Mean Corpuscular Volume 92.4 fL (80-98); Mean Platelet Volume 8.7 fL (9.4-12.3); Monocytes Absolute Auto 1.5 X10*3/uL (0.1-1.2); Monocytes Percent Auto 7.7 % (2-11); Neutrophils Absolute Auto 16.7 X10*3/uL (2.0-8.3); Neutrophils Percent Auto 84.6 % (45-73); Platelet Count 413 X10*3/uL (160-400); Red Blood Count 3.96 X10*6/uL (4.20-5.50); SCAN SMEAR FLAG 1; White Blood Count 19.7 X10*3/uL (4.8-10.8)
[2020-12-22 14:54] LABS: Alanine Aminotransferase 19 U/L (0-31); Albumin Level 4.8 g/dL (3.5-5.0); Alkaline Phosphatase 73 U/L (39-117); Anion Gap 20 (12-20); Aspartate Amino Transferase 22 U/L (5-31); Bilirubin Direct 0.2 mg/dL (0.0-0.5); Bilirubin Total 0.7 mg/dL (0.0-1.0); Blood Urea Nitrogen 17 mg/dL (9-16); Calcium 10.2 mg/dL (8.4-10.2); Carbon Dioxide 20 mmol/L (22-29); Chloride 107 mmol/L (96-108); Creatinine Clr Calc Pharmacy 99.5; Estimated Glomerular Filt Rate > 60; Glucose Random 127 mg/dL (60-115); Lipase 16 U/L (8-78); Sodium 143 mmol/L (135-145); Total Protein 8.2 g/dL (6.5-8.0)
[2020-12-22 15:20] LABS: SLIDE REVIEW VERIFIED
[2020-12-22] MEDS: Famotidine 20 MG TABLET PO (16:12)
[2020-12-22] MEDS: diphenhydrAMINE HCL 50 MG/ML VIAL 25 MG IVPUSH (16:22)
[2020-12-22] MEDS: Metoclopramide HCl 10 MG/2 ML VIAL IVPUSH (16:23)
[2020-12-22] MEDS: Morphine Sulfate 4 MG/ML CARTRIDGE IVPUSH (16:23)
== END 2020-12-22 17:52 | disposition home or self-care (01) ==
PROVIDERS: Physician Assistant Medical; Emergency Provider Emergency Medicine
DX: K52.9 Noninfective gastroenteritis and colitis, unspecified (principal); F41.1 Generalized anxiety disorder; F43.0 Acute stress reaction; R10.9 Unspecified abdominal pain; R07.9 Chest pain, unspecified; R06.02 Shortness of breath; R11.2 Nausea with vomiting, unspecified; Z79.899 Other long term (current) drug therapy; F12.90 Cannabis use, unspecified, uncomplicated
CPT/HCPCS: 36415; 71045; 80048; 80076; 83690; 85025; 96365; 96375; 99284; J1200; J2060; J2270; J2405; J2765

== ENCOUNTER 2021-02-20 17:15 | Emergency (ER) | payer OTHER, SELFPAY ==
[2021-02-20 17:26] VITALS: BP 143/94; PULSE 80; RESP 18; TEMP 36.8; O2SAT 98; BMI 32.2
--- NOTE | 2021-02-20 18:57 | ED.GENADULT ---
HPI - General Adult General Chief complaint: General Medical Stated complaint: dizziness Time Seen by Provider: 02/20/21 18:57 Source: patient Mode of arrival: ambulatory Limitations: no limitations History of Present Illness HPI narrative: Patient received moderate in a COVID vaccine 4 days ago complaining of headache body aches and pain at the site of injection patient been having headache prior to injection and has a history of migraine light sensitive + nausea no vomiting no fever no chills patient very anxious on arrival Related Data Home Medications Medication Instructions Recorded Confirmed albuterol sulfate 2.5 mg INHALATION Q4H PRN 07/29/20 albuterol sulfate [ProAir HFA] 2 puff INHALATION Q4H PRN 07/29/20 07/29/20 fluticasone propion-salmeterol 1 inh INHALATION BID 07/29/20 [Advair Diskus] montelukast 10 mg PO BEDTIME 07/29/20 07/29/20 multivitamin [Hair,Nails and Skin 1 tab PO DAILY 07/29/20 07/29/20 Vitamin] Previous Rx's Medication Instructions Recorded naproxen 500 mg PO BID PRN #10 tab 07/29/20 ondansetron HCl [Zofran] 4 mg PO Q6H PRN #10 tab 07/29/20 oxycodone-acetaminophen [Percocet] 1 tab PO Q6H PRN #10 tab 07/29/20 acetaminophen [Tylenol] 650 mg PO Q6H PRN #20 cap 12/22/20 famotidine [Pepcid] 20 mg PO BID #30 tab 12/22/20 loperamide [Imodium A-D] 2 mg PO Q4H PRN #10 cap 12/22/20 lorazepam [Ativan] 1 mg PO TID PRN #10 tab 12/22/20 metoclopramide HCl [Reglan] 10 mg PO Q6H PRN #10 tab 12/22/20 oxycodone-acetaminophen [Percocet] 1 tab PO Q6H PRN #7 tab 12/22/20 [id number] 1 cap PO Q6H PRN #20 cap 02/20/21 [Fioricet] sumatriptan succinate [Imitrex] 50 mg PO Q2H PRN #10 tab 02/20/21 Allergies Allergy/AdvReac Type Severity Reaction Status Date / Time No Known Allergies Allergy Verified 07/29/20 10:32 [No Known Allergies*] Review of Systems Review of Systems: Constitutional : No Weight loss, No Fever, No Chills ENT/Mouth : No sore throat, No Rhinorrhea Eyes: No Eye Pain, No Swelling Cardiovascular : No Chest Pain, no palpitations Respiratory : No Cough, No Sputum, no shortness of breath Gastrointestinal : no Nausea, No Vomiting, No Diarrhea, No abdominal Pain, no black stools Genitourinary : No Dysuria, No Urinary Frequency Musculoskeletal : No joint pain, No Myalgias, No Joint Swelling Skin : No Skin Lesions, + rash Neuro : No Weakness, No Numbness, No Dizziness, + Headache Psych : No Anxiety/Panic, No Depression Heme/Lymph: No Bruising, No Lymphadenopathy Endocrine : No Polyuria, No Polydipsia All other systems reviewed and are negative [facility] Past Medical History Medical History No significant past medical history Surgical History No significant past surgical history Social History Social History Alcohol intake: never Substance Use Type: Marijuana Advance Directives: No Advance Directives Information Provided: Yes Patient : No Physical Exam Vital Signs: Vital Signs: Last Vital Signs Temp 98.2 F 02/20/21 17:26 Pulse 80 02/20/21 17:26 Resp 18 02/20/21 17:26 BP 143/94 H 02/20/21 17:26 Pulse Ox 98 02/20/21 17:26 Body Mass Index 32.2 Appearance: Alert. Oriented X3. No acute distress. Photosensitive Eyes: PERRLA, No Nystagmus ENT: Pharynx normal. Oral Mucosa moist Neck: Normal inspection. Neck supple. CVS: Normal heart rate and rhythm. Pulses normal. Respiratory: No respiratory distress. Equal air entry bilateral, no wheezing/rales/rhonchi Abdomen: Soft and nontender. Bowel sounds are present, no mass palpable, no CVA tenderness Skin: Skin warm and dry. Normal skin color. Normal skin turgor. Extremities: No lower extremity edema. No calf tenderness slight tender right shoulder area without any fluid collection or skin change Neuro: Oriented X 3. No motor deficit. No sensory deficit.No cerebellar signs , cranial nerves II-XII intact Medical Decision Making MDM Narrative Medical decision making narrative: Patient feeling much better after Imitrex headache is almost gone will discharge patient home on Imitrex/Fioricet Discharge Plan Discharge Clinical Impression: Migraine Qualifiers: Migraine type: without aura Status migrainosus presence: without status migrainosus Intractability: not intractable Qualified Code(s): G43.009 - Migraine without aura, not intractable, without status migrainosus Patient Disposition: Home, Self-Care Instructions: Migraine Headache (ED) Additional Instructions: Rest at home. Take medication as prescribed for migraine headache. Apply ice pack to the site of injection of COVID-19 vaccine Prescriptions: New sumatriptan succinate [Imitrex] 50 mg tablet 50 mg PO Q2H PRN (Reason: migraine headache) Qty: 10 RF: 0 [id number] [Fioricet] 50-300-40 mg capsule 1 cap PO Q6H PRN (Reason: pain) Qty: 20 RF: 0 No Action multivitamin [Hair,Nails and Skin Vitamin] Tablet 1 tab PO DAILY RF: 0 montelukast 10 mg Tablet 10 mg PO BEDTIME RF: 0 albuterol sulfate [ProAir HFA] 90 mcg/actuation Hfa Aerosol Inhaler 2 puff INHALATION Q4H PRN (Reason: Shortness Of Breath) RF: 0 albuterol sulfate 2.5 mg /3 mL (0.083 %) Solution For Nebulization 2.5 mg INHALATION Q4H PRN (Reason: Shortness Of Breath) RF: 0 fluticasone propion-salmeterol [Advair Diskus] 100-50 mcg/dose Blister With Device 1 inh INHALATION BID RF: 0 oxycodone-acetaminophen [Percocet] 5-325 mg tablet 1 tab PO Q6H PRN (Reason: pain) Qty: 10 RF: 0 naproxen 500 mg tablet 500 mg PO BID PRN (Reason: pain) Qty: 10 RF: 0 ondansetron HCl [Zofran] 4 mg tablet 4 mg PO Q6H PRN (Reason: nausea and vomiting) Qty: 10 RF: 0 famotidine [Pepcid] 20 mg tablet 20 mg PO BID Qty: 30 RF: 0 oxycodone-acetaminophen [Percocet] 5-325 mg tablet 1 tab PO Q6H PRN (Reason: pain) Qty: 7 RF: 0 lorazepam [Ativan] 1 mg tablet 1 mg PO TID PRN (Reason: anxiety) Qty: 10 RF: 0 metoclopramide HCl [Reglan] 10 mg tablet 10 mg PO Q6H PRN (Reason: nausea and vomiting) Qty: 10 RF: 0 loperamide [Imodium A-D] 2 mg capsule 2 mg PO Q4H PRN (Reason: loose stool) Qty: 10 RF: 0 acetaminophen [Tylenol] 325 mg capsule 650 mg PO Q6H PRN (Reason: pain) Qty: 20 RF: 0
[2021-02-20] MEDS: Butalb/Acetamin/Caff 50/325/40 TABLET 1 TAB PO (20:47)
== END 2021-02-20 20:56 | disposition home or self-care (01) ==
PROVIDERS: Emergency Provider Internal Medicine; PCP Internal Medicine
DX: G43.009 Migraine without aura, not intractable, without status migrainosus (principal); R42 Dizziness and giddiness; F12.90 Cannabis use, unspecified, uncomplicated; Z79.899 Other long term (current) drug therapy
CPT/HCPCS: 96372; 99283; 99284; J3030

== ENCOUNTER 2021-09-04 06:04 | Emergency (ER) | payer OTHER, SELFPAY ==
[2021-09-04 06:20] VITALS: BP 104/73; PULSE 99; RESP 20; TEMP 36.6; O2SAT 96; BMI 32.0
== END 2021-09-04 07:45 | disposition left against medical advice (07) ==
PROVIDERS: Emergency Provider Emergency Medicine; PCP Internal Medicine
DX: R10.9 Unspecified abdominal pain (principal)
CPT/HCPCS: 99281; 99282

== ENCOUNTER 2022-02-22 17:39 | Observation (INO) | payer OTHER, SELFPAY ==
--- NOTE | ~2022-02-22 | CT_ITS ---
EXAMINATION: CT cervical spine wo con, CT head/brain wo con INDICATION INFORMATION: Syncope with head strike. COMPARISON: None TECHNIQUE: Separate noncontrast CT examinations of the head and cervical spine were performed. Coronal and sagittal reformats were obtained at the acquisition workstation. DLP: 2065 mGy-cm FINDINGS: HEAD: There is no evidence of acute intracranial hemorrhage or territorial infarction. [place] to white matter differentiation is well preserved. No abnormal mass effect or midline shift is seen. No extra-axial fluid collections are identified. There is asymmetric prominence of the ventricles as compared to the sulci. The findings raise a possibility of normal pressure hydrocephalus. There is no abnormal attenuation within the brain parenchyma. The cerebellar tonsils are well positioned. The calvarium is intact. Visualized portions of the orbits are unremarkable. The mastoid air cells and visualized portions of the paranasal sinuses are well aerated. CERVICAL SPINE: Slight prominence of the lordotic curvature of the cervical spine. Posterior alignment is maintained without significant subluxation.Vertebral body heights and intervertebral disc spaces are maintained. No acute fractures seen. There is cervical spondylosis present, with the more prominent changes of moderate disc degeneration at C5-C6, C6-C7. The atlantoaxial and atlantooccipital articulations are intact. No prevertebral soft tissue swelling. No suspicious thyroid findings. Visualized lung apices are clear. CT/CT cervical spine wo con IMPRESSION: CT HEAD: 1. No evidence of acute intracranial hemorrhage or edematous territorial infarction. 2. Asymmetric prominence of the ventricles as compared to the sulci. Findings raise a possibility of normal pressure hydrocephalus. Please clinically correlate. Neurological consultation as clinically warranted. CT cervical spine: 1. No evidence of acute fracture. 2. Cervical spondylosis.
--- NOTE | ~2022-02-22 | US_ITS ---
EXAMINATION: ULTRASOUND PELVIS WITH OVARIAN DOPPLER. CLINICAL INFORMATION: Right lower quadrant pain COMPARISON: None TECHNIQUE: Transabdominal and transvaginal imaging of pelvis is performed. FINDINGS: The uterus is anteverted, anteflexed measuring 8.9 cm in length, 5.2 cm in AP and 5.3 cm in transverse dimension. The endometrial thickness is 1.1 cm. There are small nabothian cysts seen in the cervix. Right ovary measures 3.1 x 1.6 x 1.9 cm and volume 4.9 mL. No focal lesion seen. There is normal arterial and venous flow seen on Doppler exam. Right ovary measures 2.8 x 1.7 x 2.0 cm and volume 5.0 mL. No focal lesion seen. There is normal arterial and venous flow seen on Doppler exam. There is no free free fluid in the cul-de-sac. US/US pelvic ovarian doppler IMPRESSION: Small nabothian cysts in the cervix. Uterus and ovaries are unremarkable.
--- NOTE | ~2022-02-22 | CT_ITS ---
EXAMINATION: CT ABDOMEN AND PELVIS WITHOUT CONTRAST CLINICAL INFORMATION: Right lower quadrant pain COMPARISON: None TECHNIQUE: Multidetector volumetric imaging was performed from the superior aspect of the liver through the pubic symphysis. Sagittal and coronal reformatted images were obtained on the technologist's workstation. This CT examination was performed using dose optimization techniques as appropriate, variously including the following: *Automated exposure control *Adjustment of mA and/or kV according to patient size (this includes techniques or standardized protocols for targeted exams where dose is matched to indication/reason for exam; i.e. extremities or head) *Use of iterative reconstruction technique DLP: 2065 mGy-cm FINDINGS: LUNG BASES: The visualized lung bases are unremarkable. LIVER, GALLBLADDER, AND BILIARY TREE: The liver is normal in size, shape, and attenuation. No focal hepatic lesion or biliary ductal dilatation is present. The gallbladder is unremarkable with no evidence of radiopaque gallstones, gallbladder wall thickening, or obvious pericholecystic inflammatory changes. PANCREAS: Unremarkable. SPLEEN: Unremarkable. ADRENAL GLANDS: Unremarkable. KIDNEYS AND URETERS: The kidneys are normal in size, shape, and attenuation. No hydronephrosis, hydroureter, or calculi seen. No perinephric stranding. BLADDER: Unremarkable. GASTROINTESTINAL TRACT: There is scattered stool and gas seen throughout the colon without any significant distention. The small bowel loops are normal caliber. There are numerous right lower quadrant ileocecal mesenteric lymph nodes. The largest lymph nodes measure 9 mm. Appendix is normal caliber and best visualized on sagittal image 68/23 through 64/23 The stomach is nondistended. ABDOMINAL WALL: No significant hernia is appreciated. LYMPH NODES: There are several right iliac E cecal mesenteric lymph nodes as described above. VASCULAR: Unremarkable. PELVIC VISCERA: The uterus is anteverted and appears unremarkable. There are tubal ligation the metallic clips related artifacts. There is no free air or free fluid. Scattered phleboliths are seen in the right lower quadrant. OSSEOUS STRUCTURES: There are degenerative disc changes L4-L5 disc level. CT/CT abdomen pelvis wo con IMPRESSION: No acute intra-abdominal process seen. There are numerous right lower quadrant ileo cecal mesenteric lymph nodes, nonspecific. Fleischner guidelines were followed.
[2022-02-22 18:11] VITALS: BP 115/58; BP 148/82; PULSE 80; PULSE 85; RESP 18; TEMP 36.7; O2SAT 100; O2SAT 96; BMI 34.2
--- NOTE | 2022-02-22 18:13 | ED.FEMALEGU ---
HPI - Female Genitourinary General Chief complaint: Vaginal Bleeding Stated complaint: vaginal bleeding x3 weeks Time Seen by Provider: 02/22/22 17:49 Source: patient Mode of arrival: ambulatory Limitations: no limitations History of Present Illness HPI Narrative: This is a 31 year old female A1 presents to the emergency department with vaginal bleeding x3 days and severe abdominal pain times a few days as well as a syncopal episode and dizziness x1 day. Patient tells me that she has been bleeding through 5-6 pads per hour over the past week, she tells me that the 2 weeks before that she was spotting and her period was irregular with blood clots. Today she tells me she has been having large clots that are dark colored, she tells me it is the size of a ball. She also tells me that she had a syncopal episode at work, hitting her head without loss of consciousness. She currently is complaining of dizziness, described as disequilibrium she tells me this started after she hit her head. Patient is not on blood thinners. Patient also tells me that she is having severe abdominal pain, worse in the right lower quadrant, she tells me the pain is better when she presses on the right lower quadrant worse when she lets go. Patient has a history of tubal ligation 11 years ago however she tells me she recently saw an OBGYN which told her that the surgery was messed up. She has a history of a miscarriage after her tubal ligation, she tells me she is really nervous because this feels like the time she had a miscarriage. She tells me she feels like she needs to push in some things going to come out. Patient tells me she does not know if she is , she has not taken a test. She reports irregular menses. Upon history taking patient appears uncomfortable, is screaming out in pain. Patient denies headache, vision changes, nausea, vomiting, chest pain, shortness of breath. Denies possible STD exposure. Patient is not currently on control. MD elicited complaint: vaginal bleeding Pertinent past history: prior miscarriages, tubal ligation and other Onset (ago): week(s) (3) Location of symptoms: RLQ Severity: severe Female Urogenital Radiation: Non-Radiating Severity scale (1-10): >10 Quality of pain: cramping and sharp Consistency: constant Vaginal discharge: none Vaginal bleeding: bright red, dark red, clots and # pads per hour (5) Exacerbating factors: other (Letting go after she presses on her abdomen) Relieving factors: other (Pressure to right lower quadrant.) Associated symptoms: abdominal pain, syncope, weakness and other (Dizziness.) Treatment prior to arrival: none Sexual activity: Yes Possible : unsure if and at home test not taken Related Data Home Medications Medication Instructions Recorded Confirmed albuterol sulfate 2.5 mg INHALATION Q4H PRN 07/29/20 albuterol sulfate 90 mcg/actuation 2 puff INHALATION Q4H PRN 07/29/20 07/29/20 aerosol inhaler (ProAir HFA) fluticasone 100 mcg-salmeterol 50 1 inh INHALATION BID 07/29/20 mcg/dose blistr powdr for inhalation (Advair Diskus) montelukast 10 mg tablet 10 mg PO BEDTIME 07/29/20 07/29/20 multivitamin 1 tab PO DAILY 07/29/20 07/29/20 Previous Rx's Medication Instructions Recorded naproxen 500 mg tablet 500 mg PO BID PRN #10 tab 07/29/20 ondansetron HCl 4 mg tablet 4 mg PO Q6H PRN #10 tab 07/29/20 (Zofran) oxycodone-acetaminophen 5 mg-325 1 tab PO Q6H PRN #10 tab 07/29/20 mg tablet (Percocet) acetaminophen 325 mg capsule 650 mg PO Q6H PRN #20 cap 12/22/20 (Tylenol) famotidine 20 mg tablet (Pepcid) 20 mg PO BID #30 tab 12/22/20 loperamide 2 mg capsule (Imodium 2 mg PO Q4H PRN #10 cap 12/22/20 A-D) lorazepam 1 mg tablet (Ativan) 1 mg PO TID PRN #10 tab 12/22/20 metoclopramide HCl 10 mg tablet 10 mg PO Q6H PRN #10 tab 12/22/20 (Reglan) oxycodone-acetaminophen 5 mg-325 1 tab PO Q6H PRN #7 tab 12/22/20 mg tablet (Percocet) puagdxmqst-ucpuiqojdgvac-jllsaamj 1 cap PO Q6H PRN #20 cap 02/20/21 50 mg-300 mg-40 mg capsule (Fioricet) sumatriptan succinate 50 mg tablet 50 mg PO Q2H PRN #10 tab 02/20/21 (Imitrex) Allergies Allergy/AdvReac Type Severity Reaction Status Date / Time No Known Allergies Allergy Verified 07/29/20 10:32 [No Known Allergies*] Review of Systems Review of Systems: Constitutional : No Weight loss, No Fever, No Chills, + Fatigue, + Malaise ENT/Mouth : No sore throat, No Rhinorrhea Eyes: No Eye Pain, No Swelling, No Redness Cardiovascular : No Chest Pain, No SOB, No Dyspnea on Exertion, No Orthopnea, No Edema, No Palpitations Respiratory : No Cough, No Sputum, No Wheezing Gastrointestinal : No Nausea, No Vomiting, No Diarrhea, No Constipation, + abdominal Pain, No Hematochezia, No Melena Genitourinary : No Dysuria, No Urinary Frequency, No Hematuria, + vaginal bleeding Musculoskeletal : No joint pain, No Myalgias, No Joint Swelling Skin : No Skin Lesions, No rash Neuro : No Weakness, No Numbness, No Dizziness, No Headache Psych : No Anxiety/Panic, No Depression All other systems reviewed and are negative Yes all other systems are reviewed and are negative COUNT INCLUDES THE [facility] Past Medical History Attestation statement: The following information was validated with the patient. Source: old records reviewed and nursing notes reviewed Medical History No significant past medical history Surgical History No significant past surgical history Social History Social History Alcohol intake: never Patient Tobacco Use Status: Never used Tobacco Use of substances other than those prescribed or required for medical reasons: No Substance Use Type: Marijuana Advance Directives: No Advance Directives Information Provided: No Physical Exam Vital Signs: Vital Signs: Last Vital Signs Temp 98.7 F 02/22/22 23:32 Pulse 60 02/23/22 03:16 Resp 18 02/23/22 03:16 BP 108/52 L 02/23/22 03:16 Pulse Ox 96 02/23/22 03:16 BMI result Body Mass Index 34.2 Appearance: Alert.? Oriented X3.? No acute distress.? Patient appears extremely uncomfortable, rolling around in bed screaming out in pain. Head: Normocephalic, atraumatic, no step-offs or deformities Eyes: Pupils equal, round and reactive to light.? ENT: Pharynx normal.? Neck: Normal inspection.? Neck supple.? CVS: Normal rate, rapid rhythm. Pulses normal.? Respiratory: No respiratory distress.? Breath sounds normal.? Abdomen: Soft and + abdomen is diffusely tender however worse in the right lower quadrant with rebound tenderness. Skin: Skin warm and dry.? Normal skin color.? Normal skin turgor.? Sensitive exam: (Ruma WESTON at bedside) there is a large amount of bright red blood noted in the vagina, closed cervical os, no products of conception visualized within the cervical office, patient reports 10/10 pain in her abdomen when it pelvic exam is done. Bimanual exam without any lumps or masses. No adnexal tenderness. Extremities: No lower extremity edema.? No calf ttp. 5/5 strength to bilateral upper and lower extremities Back: No midline tenderness, no C-spine tenderness, full range of motion, no CVA tenderness bilaterally Neuro: Oriented X 3.? No motor deficit.? No sensory deficit. CN 2-12 intact Course Reevaluation(s) Reevaluation #1: Patient is noted to have a slight leukocytosis H&H stable, no acute electrolyte abnormalities requiring intervention, lactic acid normal. COVID negative. Pending blood bank, CT of the abdomen and pelvis pending. Time: 19:20 Reevaluation #2: CT of the cervical spine with no evidence of fracture dislocations, no subluxations. CT of the head with no evidence of acute intracranial hemorrhages or acute edematous territorial infarction, asymmetric prominence of the ventricles as compared to the sulci concerning for normal pressure hydrocephalus however patient not complaining of discoordination, incontinence. Ultrasound pending. CT of the abdomen and pelvis pending Time: 20:44 Reevaluation #3: CT of the abdomen pelvis with no acute intra-abdominal process seen. Numerous of right lower quadrant ileocecal mesenteric lymph nodes noted however nonspecific. Ultrasound of the pelvis reveal and small nobothian cysts in the cervix. Repeat CBC with a slight leukocytosis and slight NV. Patient still in 10/10 pain in also complaining of vomiting. Time: 00:00 Additional Reevaluation(s): 032 Patient continues to be in pain despite multiple rounds of morphine. Her pressure is soft therefore I will not it give more morphine at this time. I will reach out to hospitalist for admission for intractable pain as patient is extremely uncomfortable, I do not feel comfortable discharging her home. She also has abnormal lymph nodes in the right lower quadrant which is consistent to where her pain is, patient will likely benefit from an OBGYN consult. MDM - Female Genitourinary MDM Narrative Medical decision making narrative: 1821 31-year-old female presents with vaginal bleeding and x3 weeks worsening over the past week, severe abdominal pain x1 day worse in the right lower quadrant, and dizziness status post syncopal episode today. Patient is not on blood thinners. Patient has history of tubal ligation however cording to patient she spoked OBGYN and they told her that her surgery was faulty. After her tubal ligation she did have 1 miscarriage. Patient tells me this feels like the time she had a miscarriage. The examination significant for an extremely uncomfortable female, rolling around in bed. Regular rate past rhythm likely sinus tachycardia. Lungs clear. Abdomen diffusely tender with rebound tenderness to right lower quadrant, pain is worse in the right lower quadrant. Neuro exam is nonfocal. Sensitive exam reveals heavy bleeding from the vagina with a closed cervical os no adnexal tenderness, lumps or masses appreciated. Unable to visualize products of conception. History and physical examination concerning for appendicitis, ruptured ectopic, miscarriage. At this time basic labs will be ordered as well as blood cultures, lactic hCG, common [place], chlamydia, bacterial vaginosis panel, CT of the abdomen and pelvis without contrast, CT of the cervical spine and head, type and screen. Patient will be given morphine for pain. At this time will obtain a bedside ultrasound, it hCG is positive pelvic ultrasound will also be ordered. This patient was evaluated during a time of global shortage of iodinated contrast media. Based on guidance from the [employer], best practices, and local institutional approaches an alternative path for evaluating and managing the patient may have been employed in order to provide optimal care during this shortage. The current situation has been discussed with the patient. Medical Records Attestation: I reviewed the patient's medical records. Lab Data Attestation: I reviewed the patient's lab results. Result diagrams: 02/22/22 23:46 02/22/22 18:43 Labs: Lab Results 02/22/22 02/22/22 02/22/22 Range/Units 18:41 18:43 18:43 WBC 13.1 H (4.8-10.8) X10*3/uL RBC 3.89 L (4.20-5.50) X10*6/uL Hgb 12.6 (12.0-16.0) g/dl Hct 35.7 L (37.0-47.0) % MCV 91.8 (80.0-98.0) fL MCH 32.4 (27.0-33.0) pg MCHC 35.3 H (31.0-35.0) g/dl RDW 12.4 (11.0-16.0) % Plt Count 383 (160-400) X10*3/uL MPV 8.5 L (9.4-12.3) fL Immature Gran % (Auto) 0.3 (0.0-0.4) % Neut % (Auto) 53.1 (45-73) % Lymph % (Auto) 36.5 (20-40) % [place] % (Auto) 8.3 (2-11) % Eos % (Auto) 1.6 (0-4) % Baso % (Auto) 0.2 (0-2) % Lymph # (Auto) 4.8 (1.2-4.9) X10*3/uL [place] # (Auto) 1.1 (0.1-1.2) X10*3/uL Eos # (Auto) 0.2 (0.0-0.4) X10*3/uL Baso # (Auto) 0.0 (0.0-0.2) X10*3/uL Abs Immat Gran (auto) 0.04 H (0.00-0.03) X10*3/uL Absolute Neuts (auto) 7.0 (2.0-8.3) x10*3/uL Absolute Nucleated RBC 0.000 (0.0-0.012) X10*3/uL Nucleated RBC % (auto) 0.0 (0.0-0.2) /100WBC Smear Tech's Comments PT (9.9-13.0) SEC INR (0.9-1.1) Sodium 135 (135-145) mmol/L Potassium 4.9 D (3.3-5.1) mmol/L Chloride 106 (96-108) mmol/L Carbon Dioxide 21 L (22-29) mmol/L Anion Gap 13 (12-20) BUN 9 (9-16) mg/dL Creatinine 0.73 (0.5-1.4) mg/dL Estim Creat Clear Calc 102.2 Estimated GFR > 60 Random Glucose 89 (60-115) mg/dL Lactic Acid 1.4 (0.5-2.0) mmol/L Calcium 9.6 (8.4-10.2) mg/dL Magnesium 2.0 (1.6-2.6) mg/dL Total Bilirubin 0.3 (0.0-1.0) mg/dL AST 23 (5-31) U/L ALT 31 (0-31) U/L Alkaline Phosphatase 80 (39-117) U/L Troponin I High Sens (<3.5-17.0) ng/L C-Reactive Protein (< or = 0.50) mg/dL Total Protein 7.9 (6.5-8.0) g/dL Albumin 4.1 (3.5-5.0) g/dL Lipase 26 (8-78) U/L Beta HCG, Quant mIU/mL Urine Color Urine Appearance Urine pH (5.0-8.0) Ur Specific [place] (1.005-1.025) Urine Protein (NEG-TRACE) MG/DL Urine Glucose (UA) (NEG) MG/DL Urine Ketones (NEG) MG/DL Urine Blood (NEG) Urine Nitrite (NEG) Ur Leukocyte Esterase (NEG) Urine RBC (0) /HPF Urine WBC (0-4) /HPF Ur Squamous Epith Cells /LPF Urine Bacteria /LPF Urine Mucus /LPF COVID-19 ([facility]) (Negative) COVID-19 Clin Com Blood Type Antibody Screen 02/22/22 02/22/22 02/22/22 Range/Units 18:43 18:43 20:36 WBC (4.8-10.8) X10*3/uL RBC (4.20-5.50) X10*6/uL Hgb (12.0-16.0) g/dl Hct (37.0-47.0) % MCV (80.0-98.0) fL MCH (27.0-33.0) pg MCHC (31.0-35.0) g/dl RDW (11.0-16.0) % Plt Count (160-400) X10*3/uL MPV (9.4-12.3) fL Immature Gran % (Auto) (0.0-0.4) % Neut % (Auto) (45-73) % Lymph % (Auto) (20-40) % [place] % (Auto) (2-11) % Eos % (Auto) (0-4) % Baso % (Auto) (0-2) % Lymph # (Auto) (1.2-4.9) X10*3/uL [place] # (Auto) (0.1-1.2) X10*3/uL Eos # (Auto) (0.0-0.4) X10*3/uL Baso # (Auto) (0.0-0.2) X10*3/uL Abs Immat Gran (auto) (0.00-0.03) X10*3/uL Absolute Neuts (auto) (2.0-8.3) x10*3/uL Absolute Nucleated RBC (0.0-0.012) X10*3/uL Nucleated RBC % (auto) (0.0-0.2) /100WBC Smear Tech's Comments PT 10.7 (9.9-13.0) SEC INR 0.9 (0.9-1.1) Sodium (135-145) mmol/L Potassium (3.3-5.1) mmol/L Chloride (96-108) mmol/L Carbon Dioxide (22-29) mmol/L Anion Gap (12-20) BUN (9-16) mg/dL Creatinine (0.5-1.4) mg/dL Estim Creat Clear Calc Estimated GFR Random Glucose (60-115) mg/dL Lactic Acid (0.5-2.0) mmol/L Calcium (8.4-10.2) mg/dL Magnesium (1.6-2.6) mg/dL Total Bilirubin (0.0-1.0) mg/dL AST (5-31) U/L ALT (0-31) U/L Alkaline Phosphatase (39-117) U/L Troponin I High Sens (<3.5-17.0) ng/L C-Reactive Protein (< or = 0.50) mg/dL Total Protein (6.5-8.0) g/dL Albumin (3.5-5.0) g/dL Lipase (8-78) U/L Beta HCG, Quant < 2 mIU/mL Urine Color Urine Appearance Urine pH (5.0-8.0) Ur Specific [place] (1.005-1.025) Urine Protein (NEG-TRACE) MG/DL Urine Glucose (UA) (NEG) MG/DL Urine Ketones (NEG) MG/DL Urine Blood (NEG) Urine Nitrite (NEG) Ur Leukocyte Esterase (NEG) Urine RBC (0) /HPF Urine WBC (0-4) /HPF Ur Squamous Epith Cells /LPF Urine Bacteria /LPF Urine Mucus /LPF COVID-19 ([facility]) Negative (Negative) COVID-19 Clin Com See Note Blood Type Antibody Screen 02/22/22 02/22/22 02/22/22 Range/Units 20:37 21:35 21:35 WBC (4.8-10.8) X10*3/uL RBC (4.20-5.50) X10*6/uL Hgb (12.0-16.0) g/dl Hct (37.0-47.0) % MCV (80.0-98.0) fL MCH (27.0-33.0) pg MCHC (31.0-35.0) g/dl RDW (11.0-16.0) % Plt Count (160-400) X10*3/uL MPV (9.4-12.3) fL Immature Gran % (Auto) (0.0-0.4) % Neut % (Auto) (45-73) % Lymph % (Auto) (20-40) % [place] % (Auto) (2-11) % Eos % (Auto) (0-4) % Baso % (Auto) (0-2) % Lymph # (Auto) (1.2-4.9) X10*3/uL [place] # (Auto) (0.1-1.2) X10*3/uL Eos # (Auto) (0.0-0.4) X10*3/uL Baso # (Auto) (0.0-0.2) X10*3/uL Abs Immat Gran (auto) (0.00-0.03) X10*3/uL Absolute Neuts (auto) (2.0-8.3) x10*3/uL Absolute Nucleated RBC (0.0-0.012) X10*3/uL Nucleated RBC % (auto) (0.0-0.2) /100WBC Smear Tech's Comments PT (9.9-13.0) SEC INR (0.9-1.1) Sodium (135-145) mmol/L Potassium (3.3-5.1) mmol/L Chloride (96-108) mmol/L Carbon Dioxide (22-29) mmol/L Anion Gap (12-20) BUN (9-16) mg/dL Creatinine (0.5-1.4) mg/dL Estim Creat Clear Calc Estimated GFR Random Glucose (60-115) mg/dL Lactic Acid (0.5-2.0) mmol/L Calcium (8.4-10.2) mg/dL Magnesium (1.6-2.6) mg/dL Total Bilirubin (0.0-1.0) mg/dL AST (5-31) U/L ALT (0-31) U/L Alkaline Phosphatase (39-117) U/L Troponin I High Sens < 3.5 (<3.5-17.0) ng/L C-Reactive Protein (< or = 0.50) mg/dL Total Protein (6.5-8.0) g/dL Albumin (3.5-5.0) g/dL Lipase (8-78) U/L Beta HCG, Quant mIU/mL Urine Color YELLOW Urine Appearance CLEAR Urine pH 6.0 (5.0-8.0) Ur Specific [place] 1.020 (1.005-1.025) Urine Protein NEG (NEG-TRACE) MG/DL Urine Glucose (UA) NEG (NEG) MG/DL Urine Ketones NEG (NEG) MG/DL Urine Blood 3+ H (NEG) Urine Nitrite NEG (NEG) Ur Leukocyte Esterase NEG (NEG) Urine RBC 1-4 (0) /HPF Urine WBC 1-4 (0-4) /HPF Ur Squamous Epith Cells 1+ /LPF Urine Bacteria 2+ /LPF Urine Mucus 2+ /LPF COVID-19 ([facility]) (Negative) COVID-19 Clin Com Blood Type A Positive Antibody Screen NEGATIVE 02/22/22 02/23/22 Range/Units 23:46 03:14 WBC 15.4 H (4.8-10.8) X10*3/uL RBC 3.65 L (4.20-5.50) X10*6/uL Hgb 11.8 L (12.0-16.0) g/dl Hct 33.7 L (37.0-47.0) % MCV 92.3 (80.0-98.0) fL MCH 32.3 (27.0-33.0) pg MCHC 35.0 (31.0-35.0) g/dl RDW 12.3 (11.0-16.0) % Plt Count 337 (160-400) X10*3/uL MPV 8.4 L (9.4-12.3) fL Immature Gran % (Auto) 0.4 (0.0-0.4) % Neut % (Auto) 58.2 (45-73) % Lymph % (Auto) 32.9 (20-40) % [place] % (Auto) 7.4 (2-11) % Eos % (Auto) 0.9 (0-4) % Baso % (Auto) 0.2 (0-2) % Lymph # (Auto) 5.1 H (1.2-4.9) X10*3/uL [place] # (Auto) 1.1 (0.1-1.2) X10*3/uL Eos # (Auto) 0.1 (0.0-0.4) X10*3/uL Baso # (Auto) 0.0 (0.0-0.2) X10*3/uL Abs Immat Gran (auto) 0.06 H (0.00-0.03) X10*3/uL Absolute Neuts (auto) 9.0 H (2.0-8.3) x10*3/uL Absolute Nucleated RBC 0.000 (0.0-0.012) X10*3/uL Nucleated RBC % (auto) 0.0 (0.0-0.2) /100WBC Smear Tech's Comments VERIFIED PT (9.9-13.0) SEC INR (0.9-1.1) Sodium (135-145) mmol/L Potassium (3.3-5.1) mmol/L Chloride (96-108) mmol/L Carbon Dioxide (22-29) mmol/L Anion Gap (12-20) BUN (9-16) mg/dL Creatinine (0.5-1.4) mg/dL Estim Creat Clear Calc Estimated GFR Random Glucose (60-115) mg/dL Lactic Acid (0.5-2.0) mmol/L Calcium (8.4-10.2) mg/dL Magnesium (1.6-2.6) mg/dL Total Bilirubin (0.0-1.0) mg/dL AST (5-31) U/L ALT (0-31) U/L Alkaline Phosphatase (39-117) U/L Troponin I High Sens (<3.5-17.0) ng/L C-Reactive Protein 0.54 H (< or = 0.50) mg/dL Total Protein (6.5-8.0) g/dL Albumin (3.5-5.0) g/dL Lipase 20 (8-78) U/L Beta HCG, Quant mIU/mL Urine Color Urine Appearance Urine pH (5.0-8.0) Ur Specific [place] (1.005-1.025) Urine Protein (NEG-TRACE) MG/DL Urine Glucose (UA) (NEG) MG/DL Urine Ketones (NEG) MG/DL Urine Blood (NEG) Urine Nitrite (NEG) Ur Leukocyte Esterase (NEG) Urine RBC (0) /HPF Urine WBC (0-4) /HPF Ur Squamous Epith Cells /LPF Urine Bacteria /LPF Urine Mucus /LPF COVID-19 ([facility]) (Negative) COVID-19 Clin Com Blood Type Antibody Screen Critical Care Time Critical Care Time Critical Care Time: No Discharge Plan Discharge Clinical Impression: Vaginal bleeding, Abdominal pain, RLQ Patient Disposition: Admitted As Inpatient
[2022-02-22] MEDS: Morphine Sulfate 4 MG/ML CARTRIDGE IVPUSH (18:44)
[2022-02-22] MEDS: 0.9 % Sodium Chloride 1,000 ML 999 ML IV (18:45)
[2022-02-22 18:52] LABS: MANUAL DIFF FLAG NO
[2022-02-22 18:55] LABS: Basophils Percent Auto 0.2 % (0-2); Eosinophils Absolute Auto 0.2 X10*3/uL (0.0-0.4); Eosinophils Percent Auto 1.6 % (0-4); Hematocrit 35.7 % (37.0-47.0); Hemoglobin 12.6 g/dl (12.0-16.0); Imm Gran Abs Auto 0.04 X10*3/uL (0.00-0.03); Imm Gran Pct Auto 0.3 % (0.0-0.4); Lymphocytes Absolute Auto 4.8 X10*3/uL (1.2-4.9); Lymphocytes Percent Auto 36.5 % (20-40); Mean Corpuscular HGB Conc 35.3 g/dl (31.0-35.0); Mean Corpuscular Hemoglobin 32.4 pg (27.0-33.0); Mean Corpuscular Volume 91.8 fL (80.0-98.0); Mean Platelet Volume 8.5 fL (9.4-12.3); Monocytes Absolute Auto 1.1 X10*3/uL (0.1-1.2); Monocytes Percent Auto 8.3 % (2-11); Neutrophils Percent Auto 53.1 % (45-73); Platelet Count 383 X10*3/uL (160-400); Red Blood Count 3.89 X10*6/uL (4.20-5.50); Red Cell Distribution Width 12.4 % (11.0-16.0); White Blood Count 13.1 X10*3/uL (4.8-10.8)
[2022-02-22 19:08] LABS: COVID-19 Test Negative (Negative); IDNOW Serial# 16C4AD1C
[2022-02-22 19:09] LABS: Lactic Acid 1.4 mmol/L (0.5-2.0)
[2022-02-22 19:11] LABS: Alanine Aminotransferase 31 U/L (0-31); Albumin Level 4.1 g/dL (3.5-5.0); Alkaline Phosphatase 80 U/L (39-117); Anion Gap 13 (12-20); Aspartate Amino Transferase 23 U/L (5-31); Bilirubin Total 0.3 mg/dL (0.0-1.0); Blood Urea Nitrogen 9 mg/dL (9-16); Calcium 9.6 mg/dL (8.4-10.2); Carbon Dioxide 21 mmol/L (22-29); Chloride 106 mmol/L (96-108); Creatinine Clr Calc Pharmacy 102.2; Estimated Glomerular Filt Rate > 60; Glucose Random 89 mg/dL (60-115); Lipase 26 U/L (8-78); Potassium 4.9 mmol/L (3.3-5.1); Sodium 135 mmol/L (135-145); Total Protein 7.9 g/dL (6.5-8.0)
[2022-02-22 19:15] LABS: HCG Quantitative < 2 mIU/mL
[2022-02-22 19:40] VITALS: BP 115/57; PULSE 77; RESP 20; TEMP 36.4; O2SAT 96
--- NOTE | 2022-02-22 19:43 | PC.NURSE ---
Addendum entered by Dominga Diaz 02/23/22 06:56: report given to TRISTA Marie Original Note: report received from TRISTA Ojeda. pt is alert and oriented. pt report pain 07/04 provider made aware. pt stated that she changed her pad report that it was another blood clot
[2022-02-22 20:29] VITALS: BP 105/65; PULSE 73; RESP 16; TEMP 36.8; O2SAT 96
[2022-02-22 20:48] LABS: INTERNATIONAL NORM RATIO 0.9 (0.9-1.1); Prothrombin Time 10.7 SEC (9.9-13.0)
[2022-02-22] MEDS: Morphine Sulfate 2 MG/ML CARTRIDGE IVPUSH (21:20)
[2022-02-22 21:48] VITALS: BP 114/67; PULSE 72; RESP 18; TEMP 37.2; O2SAT 99
[2022-02-22 21:52] LABS: Appearance Urine CLEAR; Color Urine YELLOW; Glucose Urine UA NEG (NEG); Leukocyte Esterase Urine NEG (NEG); Nitrite Urine NEG (NEG); UACC Culture Trigger NO; Urine Blood 3+ (NEG); Urine Ketones NEG (NEG); Urine Protein NEG (NEG-TRACE)
[2022-02-22 22:05] LABS: Bacteria Urine 2+ /LPF; Mucus Urine 2+ /LPF; Squamous Epithelial Cell Urine 1+ /LPF
[2022-02-22 22:10] LABS: Troponin-I High Sensitivity < 3.5 ng/L (<3.5-17.0)
[2022-02-22 23:32] VITALS: BP 111/78; PULSE 79; RESP 20; TEMP 37.1; O2SAT 100
[2022-02-22 23:53] LABS: Basophils Percent Auto 0.2 % (0-2); Eosinophils Absolute Auto 0.1 X10*3/uL (0.0-0.4); Eosinophils Percent Auto 0.9 % (0-4); Hematocrit 33.7 % (37.0-47.0); Hemoglobin 11.8 g/dl (12.0-16.0); Imm Gran Abs Auto 0.06 X10*3/uL (0.00-0.03); Imm Gran Pct Auto 0.4 % (0.0-0.4); Lymphocytes Absolute Auto 5.1 X10*3/uL (1.2-4.9); Lymphocytes Percent Auto 32.9 % (20-40); MANUAL DIFF FLAG SCAN; Mean Corpuscular Hemoglobin 32.3 pg (27.0-33.0); Mean Corpuscular Volume 92.3 fL (80.0-98.0); Mean Platelet Volume 8.4 fL (9.4-12.3); Monocytes Absolute Auto 1.1 X10*3/uL (0.1-1.2); Monocytes Percent Auto 7.4 % (2-11); Neutrophils Percent Auto 58.2 % (45-73); Platelet Count 337 X10*3/uL (160-400); Red Blood Count 3.65 X10*6/uL (4.20-5.50); Red Cell Distribution Width 12.3 % (11.0-16.0); SCAN SMEAR FLAG 1; White Blood Count 15.4 X10*3/uL (4.8-10.8)
[2022-02-23] LABS: SLIDE REVIEW VERIFIED
[2022-02-23] MEDS: ondansetron HCL 4 MG/2 ML VIAL IVPUSH ×2 (00:05→06:48)
[2022-02-23] MEDS: Morphine Sulfate 4 MG/ML CARTRIDGE IVPUSH ×2 (00:58→06:47)
[2022-02-23 01:53] VITALS: RESP 20
[2022-02-23 03:16] VITALS: BP 108/52; PULSE 60; RESP 18; O2SAT 96
[2022-02-23 03:39] LABS: C Reactive Protein 0.54 mg/dL (< or = 0.50); Lipase 20 U/L (8-78)
[2022-02-23 03:53] LABS: Erythrocyte Sedimentation Rate 27 MM/HR (0-20)
[2022-02-23 05:44] VITALS: BP 109/54; PULSE 72; RESP 16; TEMP 36.6; O2SAT 98
--- NOTE | 2022-02-23 06:32 | P.HPHOSP_ITS ---
History of Present Illness Date of Service: 02/23/22 Chief Complaint: vaginal bleed, abd pain This is a 31-year-old female with past medical history of asthma, presents to hospital with sudden onset significant abdominal pain. Patient reports that she came out of a meeting at work, when she passed out, losing consciousness. Patient reports that she has significant vaginal bleeding. She reports that she has had her menses for the past 3 weeks nonstop, heavy bleed. Reports that after losing consciousness in coming about, she had a significant blood loss, and had a large clot passed vaginally. She then developed significant right pelvic pain does radiating to her back, 08/04, constant, relieved with medi cations received in the ED, no previous similar episode, no exacerbating factors. Patient reports that her menses is usually light, irregular but she has never had an episode where she was bleeding for 3 weeks. She reports significant nausea, few episodes of vomiting, denies any fever chills, denies any chest pain, no diarrhea constipation, no urinary symptoms and no lower extremity edema. On arrival to the ED patient hemodynamically stable with no significant abnormal lateral Labs are significant for WBC count of 15.4, hemoglobin of 11.8, ESR 27, labs otherwise unremarkable, UA is negative for any infection, chlamydia, gonorrhea, serology pending, Abdominal pelvic CT shows no acute intra-abdominal process, there are numerous right lower quadrant ileocecal mesenteric lymph nodes nonspecific, Doppler study ultrasound shows small nabothian cyst in the cervix, uterus and a very is on unremarkable Given intractable pain, nausea patient will be admitted for further evaluation Review of Systems Review of Systems: Yes all other systems are reviewed and are negative [facility] Medical History (Updated 02/23/22 @ 06:40 by Keysha Alvarado MD) Anxiety Asthma History of breast cancer Family History (Updated 02/23/22 @ 06:39 by Keysha Alvarado MD) Mother Diabetes Hypertension Father Diabetes Hypertension Surgical History (Updated 02/23/22 @ 06:42 by Keysha Alvarado MD) Tubal ligation status Social History Alcohol intake: never Patient Tobacco Use Status: Never used Tobacco Use of substances other than those prescribed or required for medical reasons: No Substance Use Type: Marijuana Advance Directives: No Advance Directives Information Provided: No Meds Allergies Allergy/AdvReac Type Severity Reaction Status Date / Time No Known Allergies Allergy Verified 07/29/20 10:32 [No Known Allergies*] Active Medications: Current Medications Acetaminophen (Acetaminophen 325 Mg Tablet) 650 mg PO Q6H PRN PRN Reason: Pain, Mild (Pain Scale 1-3) Morphine Sulfate (Morphine Sulfate 4 Mg/Ml Cartridge) 4 mg IVPUSH Q4H PRN; Protocol PRN Reason: Pain, Severe (Pain Scale 7-10) Ondansetron HCl (Ondansetron Hcl 4 Mg/2 Ml Vial) 4 mg IVPUSH Q8H PRN PRN Reason: Nausea and Vomiting Pharmacy Consult (Consult Rx Perform Med Rec) 1 each MISCELLANE ONCE PRN PRN Reason: Consult order Sodium Chloride (0.9 % Sodium Chloride Flush 3 Ml Syringe) [facility] Medications Medication Instructions Recorded Confirmed Last Taken Type albuterol sulfate 2.5 mg INHALATION Q4H PRN 07/29/20 Unknown History albuterol sulfate 90 mcg/actuation 2 puff INHALATION Q4H PRN 07/29/20 07/29/20 Unknown History aerosol inhaler (ProAir HFA) fluticasone 100 mcg-salmeterol 50 1 inh INHALATION BID 07/29/20 Unknown History mcg/dose blistr powdr for inhalation (Advair Diskus) montelukast 10 mg tablet 10 mg PO BEDTIME 07/29/20 07/29/20 07/28/20 History multivitamin 1 tab PO DAILY 07/29/20 07/29/20 07/28/20 History Physical Exam Vital Signs and Narrative: Vital Signs: Last Vital Signs Temp 97.9 F 02/23/22 05:44 Pulse 72 02/23/22 05:44 Resp 16 02/23/22 05:44 BP 109/54 L 02/23/22 05:44 Pulse Ox 98 02/23/22 05:44 BMI result Body Mass Index 34.2 Const: General: cooperative and no acute distress Orientation/consciousness: patient oriented x3 Eyes: General: appearance normal, both eyes and all related structures Pupils: Equal, round and reactive pupils present Resp: Effort & Inspection: normal respiratory effort Auscultation: clear to auscultation bilaterally Cardio: Rate: regular rate Rhythm: regular rhythm GI: Palpation (GI): Soft to palpation Auscultation: normal bowel sounds : Other: Significant tenderness to deep palpation of the right pelvic region Skin: General skin exam: no rashes or lesions noted Neuro: General: patient oriented x3 Cranial nerves: Yes Equal, round and reactive pupils present Cognition (Neuro): normal cognition Extrem: General: Yes normal to inspection and Yes no pedal edema Results Labs CBC and Chem 7: 02/22/22 23:46 02/22/22 18:43 Labs: Laboratory Results - last 24 hr 02/22/22 02/22/22 02/22/22 18:41 18:43 18:43 MCV 91.8 MCH 32.4 MCHC 35.3 H RDW 12.4 Plt Count 383 MPV 8.5 L Immature Gran % (Auto) 0.3 Neut % (Auto) 53.1 Lymph % (Auto) 36.5 [place] % (Auto) 8.3 Eos % (Auto) 1.6 Baso % (Auto) 0.2 Lymph # (Auto) 4.8 [place] # (Auto) 1.1 Eos # (Auto) 0.2 Baso # (Auto) 0.0 Abs Immat Gran (auto) 0.04 H Absolute Neuts (auto) 7.0 Absolute Nucleated RBC 0.000 Nucleated RBC % (auto) 0.0 Smear Tech's Comments ESR PT INR Anion Gap 13 Estim Creat Clear Calc 102.2 Estimated GFR > 60 Random Glucose 89 Lactic Acid 1.4 Calcium 9.6 Magnesium 2.0 Total Bilirubin 0.3 AST 23 ALT 31 Alkaline Phosphatase 80 Troponin I High Sens C-Reactive Protein Total Protein 7.9 Albumin 4.1 Lipase 26 Beta HCG, Quant Urine Color Urine Appearance Urine pH Ur Specific [place] Urine Protein Urine Glucose (UA) Urine Ketones Urine Blood Urine Nitrite Ur Leukocyte Esterase Urine RBC Urine WBC Ur Squamous Epith Cells Urine Bacteria Urine Mucus COVID-19 ([facility]) COVID-19 Clin Com Blood Type Antibody Screen 02/22/22 02/22/22 02/22/22 18:43 18:43 20:36 MCV MCH MCHC RDW Plt Count MPV Immature Gran % (Auto) Neut % (Auto) Lymph % (Auto) [place] % (Auto) Eos % (Auto) Baso % (Auto) Lymph # (Auto) [place] # (Auto) Eos # (Auto) Baso # (Auto) Abs Immat Gran (auto) Absolute Neuts (auto) Absolute Nucleated RBC Nucleated RBC % (auto) Smear Tech's Comments ESR PT 10.7 INR 0.9 Anion Gap Estim Creat Clear Calc Estimated GFR Random Glucose Lactic Acid Calcium Magnesium Total Bilirubin AST ALT Alkaline Phosphatase Troponin I High Sens C-Reactive Protein Total Protein Albumin Lipase Beta HCG, Quant < 2 Urine Color Urine Appearance Urine pH Ur Specific [place] Urine Protein Urine Glucose (UA) Urine Ketones Urine Blood Urine Nitrite Ur Leukocyte Esterase Urine RBC Urine WBC Ur Squamous Epith Cells Urine Bacteria Urine Mucus COVID-19 ([facility]) Negative COVID-19 Clin Com See Note Blood Type Antibody Screen 02/22/22 02/22/22 02/22/22 20:37 21:35 21:35 MCV MCH MCHC RDW Plt Count MPV Immature Gran % (Auto) Neut % (Auto) Lymph % (Auto) [place] % (Auto) Eos % (Auto) Baso % (Auto) Lymph # (Auto) [place] # (Auto) Eos # (Auto) Baso # (Auto) Abs Immat Gran (auto) Absolute Neuts (auto) Absolute Nucleated RBC Nucleated RBC % (auto) Smear Tech's Comments ESR PT INR Anion Gap Estim Creat Clear Calc Estimated GFR Random Glucose Lactic Acid Calcium Magnesium Total Bilirubin AST ALT Alkaline Phosphatase Troponin I High Sens < 3.5 C-Reactive Protein Total Protein Albumin Lipase Beta HCG, Quant Urine Color YELLOW Urine Appearance CLEAR Urine pH 6.0 Ur Specific [place] 1.020 Urine Protein NEG Urine Glucose (UA) NEG Urine Ketones NEG Urine Blood 3+ H Urine Nitrite NEG Ur Leukocyte Esterase NEG Urine RBC 1-4 Urine WBC 1-4 Ur Squamous Epith Cells 1+ Urine Bacteria 2+ Urine Mucus 2+ COVID-19 ([facility]) COVID-19 Clin Com Blood Type A Positive Antibody Screen NEGATIVE 02/22/22 02/23/22 02/23/22 23:46 03:14 03:14 MCV 92.3 MCH 32.3 MCHC 35.0 RDW 12.3 Plt Count 337 MPV 8.4 L Immature Gran % (Auto) 0.4 Neut % (Auto) 58.2 Lymph % (Auto) 32.9 [place] % (Auto) 7.4 Eos % (Auto) 0.9 Baso % (Auto) 0.2 Lymph # (Auto) 5.1 H [place] # (Auto) 1.1 Eos # (Auto) 0.1 Baso # (Auto) 0.0 Abs Immat Gran (auto) 0.06 H Absolute Neuts (auto) 9.0 H Absolute Nucleated RBC 0.000 Nucleated RBC % (auto) 0.0 Smear Tech's Comments VERIFIED ESR 27 H PT INR Anion Gap Estim Creat Clear Calc Estimated GFR Random Glucose Lactic Acid Calcium Magnesium Total Bilirubin AST ALT Alkaline Phosphatase Troponin I High Sens C-Reactive Protein 0.54 H Total Protein Albumin Lipase 20 Beta HCG, Quant Urine Color Urine Appearance Urine pH Ur Specific [place] Urine Protein Urine Glucose (UA) Urine Ketones Urine Blood Urine Nitrite Ur Leukocyte Esterase Urine RBC Urine WBC Ur Squamous Epith Cells Urine Bacteria Urine Mucus COVID-19 ([facility]) COVID-19 Clin Com Blood Type Antibody Screen Imaging Radiologist's Impressions: Impressions Abdomen/Pelvis CT 02/22/22 20:00 IMPRESSION: No acute intra-abdominal process seen. There are numerous right lower quadrant ileo cecal mesenteric lymph nodes, nonspecific. Fleischner guidelines were followed. Cervical Spine CT 02/22/22 20:00 IMPRESSION: CT HEAD: 1. No evidence of acute intracranial hemorrhage or edematous territorial infarction. 2. Asymmetric prominence of the ventricles as compared to the sulci. Findings raise a possibility of normal pressure hydrocephalus. Please clinically correlate. Neurological consultation as clinically warranted. CT cervical spine: 1. No evidence of acute fracture. 2. Cervical spondylosis. Head CT 02/22/22 20:00 IMPRESSION: CT HEAD: 1. No evidence of acute intracranial hemorrhage or edematous territorial infarction. 2. Asymmetric prominence of the ventricles as compared to the sulci. Findings raise a possibility of normal pressure hydrocephalus. Please clinically correlate. Neurological consultation as clinically warranted. CT cervical spine: 1. No evidence of acute fracture. 2. Cervical spondylosis. Doppler Study Ultrasound 02/22/22 20:01 IMPRESSION: Small nabothian cysts in the cervix. Uterus and ovaries are unremarkable. Assessment and Plan (1) Vaginal bleeding: Status: Acute (2) Abdominal pain, RLQ: Status: Acute (3) Intractable pain: Status: Acute Plan 31-year-old female with past medical history of breast cancer 3 years ago, presents to the hospital with intractable abdominal pain and vaginal bleed # pelvic abdominal pain - unclear etiology at this time, no ovarian torsion, there is a small cyst seen on ultrasound but no significant abnormality otherwise - has nonspecific lymphadenopathy and the cecal mesenteric region - pain control - will obtain transvaginal as well as pelvic ultrasound # vaginal bleeding - patient reports menses for the past 3 weeks - unlikely to be going through menopause given her young age - reports history of tubal ligation - consult OB Gyne # intractable pain - in the setting of - pain control # asthma - not exacerbation - will continue her inhalers once medications have been reviewed # anxiety - continue home Ativan DVT prophylaxis: Early ambulation Quality Stroke Does the patient have a stroke diagnosis?: No VTE Prior VTE?: No VTE Risk Level:: Medical - low VTE Device Contraindication: Treatment Not Indicated VTE Drug Contraindication: Treatment Not Indicated
[2022-02-23] MEDS: 0.9 % Sodium Chloride Flush 3 ML SYRINGE IVFLUSH (06:48)
--- NOTE | 2022-02-23 07:29 | PHA.MEDREC ---
Pharmacy Consult ? Medication Reconciliation Pharmacy has completed the medication reconciliation. Patient reported all medications. Reports a new script was never sent for her ativan which was lst filled 01/14/22. She also reports she no longer has medicaitons for N/V and would like some. Polly Turcios, PharmD
--- NOTE | 2022-02-23 08:45 | P.CONOB_ITS ---
ENERGY PROJECTS LEAD - CN: HPI Data of Consult Consult date: 02/23/22 Requesting Physician: Dave Arias MD Primary Care Provider: Unknown Physician Consult Narrative Narrative: I was consulted on Taylor Wilkinson who is a 31 year old female who presented emergency room with vaginal bleeding after passing out in the office. Has been having oligomenorrhea over the last few years, recently started having heavy vaginal bleeding over the last 3 months weeks associated with pelvic cramping and passage of blood clots. Over the last few hours her bleeding has slowed down significantly . cc:: CC: Dave Arias MD CARD DEALER - Review of Systems Review of Systems ROS Unobtainable: All systems reviewed & are unremarkable except as noted in HPI and below Cardiovascular: Denies Palpatations, Loss of consciousness or Chest pain Respiratory: Denies Cough, Wheezing or Shortness of breath Musculoskeletal: Denies Low back pain Gastrointestinal: Denies Heartburn, Constipation, Diarrhea, Nausea or Vomiting Genitourinary: Denies Pain with urination, Burning with urination or Urinary frequency Neurological: Denies Migranes Psychological: Denies Depression OB PMFSH Past Medical History Medical History Anxiety Asthma History of breast cancer Family History Family History Mother Diabetes Hypertension Father Diabetes Hypertension Surgical History Surgical History Tubal ligation status Social History Social History Alcohol intake: never Patient Tobacco Use Status: Never used Tobacco Substance Use Type: Marijuana service: No Current occupational status: employed Meds Allergies Allergy/AdvReac Type Severity Reaction Status Date / Time No Known Allergies Allergy Verified 07/29/20 10:32 [No Known Allergies*] Active Medications: Current Medications Acetaminophen (Acetaminophen 325 Mg Tablet) 650 mg PO Q6H PRN PRN Reason: Pain, Mild (Pain Scale 1-3) Morphine Sulfate (Morphine Sulfate 4 Mg/Ml Cartridge) 4 mg IVPUSH Q4H PRN; Protocol PRN Reason: Pain, Severe (Pain Scale 7-10) Last Admin: 02/23/22 06:47 Dose: 4 mg Documented by: Ondansetron HCl (Ondansetron Hcl 4 Mg/2 Ml Vial) 4 mg IVPUSH Q8H PRN PRN Reason: Nausea and Vomiting Last Admin: 02/23/22 06:48 Dose: 4 mg Documented by: Pharmacy Consult (Consult Rx Perform Med Rec) 1 each MISCELLANE ONCE PRN PRN Reason: Consult order Sodium Chloride (0.9 % Sodium Chloride Flush 3 Ml Syringe) 3 ml IVFLUSH [facility] Last Admin: 02/23/22 06:48 Dose: 3 ml Documented by: Home Medications Medication Instructions Recorded Confirmed Last Taken Type albuterol sulfate 2.5 mg INHALATION Q4H PRN 07/29/20 02/23/22 02/22/22 History albuterol sulfate 90 mcg/actuation 2 puff INHALATION Q4H PRN 07/29/20 02/23/22 02/22/22 History aerosol inhaler (ProAir HFA) fluticasone 100 mcg-salmeterol 50 1 inh INHALATION BID 07/29/20 02/23/22 02/22/22 History mcg/dose blistr powdr for inhalation (Advair Diskus) montelukast 10 mg tablet 10 mg PO BEDTIME 07/29/20 02/23/22 02/22/22 History multivitamin 1 tab PO DAILY 07/29/20 02/23/22 02/22/22 History ENERGY PROJECTS LEAD Physical Exam Vitals Vital signs: Temp Pulse Resp BP Pulse Ox 97.9 F 72 16 109/54 L 98 02/23/22 05:44 02/23/22 05:44 02/23/22 05:44 02/23/22 05:44 02/23/22 05:44 BMI result Body Mass Index 34.2 Constitutional General Appearance: Healthy appearing, Well-nourished and Well-developed Psychiatric Mood and Affect: active and alert, normal mood and normal affect Skin Appearance: No rashes and No lesions Lungs Respiratory Effort: No intercostal retractions Auscultation: Clear to auscultation Cardiovascular Auscultation: RRR Abdomen Auscultation/Inspection/Palpation: Normal bowel sounds, Soft, Non-distended and No tenderness Female Genitalia (Pelvic) Bladder/Urethra: Normal meatus Vulva: No lesions Vagina: Nontender Cervix: Grossly normal Uterus: Normal size and Nontender Adnexa/Parametria: Adnexal Tenderness: None, Adnexal Mass: None, Parametrial Tenderness: None and Parametrial Mass: None Additional Comments: No blood per vagina no vaginal bleeding ENERGY PROJECTS LEAD - Results Labs CBC & Chem 7: 02/22/22 23:46 02/22/22 18:43 Labs: Short CBC 02/22/22 02/22/22 Range/Units 18:43 23:46 WBC 13.1 H 15.4 H (4.8-10.8) X10*3/uL Hgb 12.6 11.8 L (12.0-16.0) g/dl Hct 35.7 L 33.7 L (37.0-47.0) % Plt Count 383 337 (160-400) X10*3/uL BMP 02/22/22 18:43 Sodium 135 Potassium 4.9 D Chloride 106 Carbon Dioxide 21 L BUN 9 Creatinine 0.73 Calcium 9.6 Liver Function 02/22/22 Range/Units 18:43 Total Bilirubin 0.3 (0.0-1.0) mg/dL AST 23 (5-31) U/L ALT 31 (0-31) U/L Alkaline Phosphatase 80 (39-117) U/L Albumin 4.1 (3.5-5.0) g/dL Urine 02/22/22 Range/Units 21:35 Urine Color YELLOW Urine Appearance CLEAR Urine pH 6.0 (5.0-8.0) Ur Specific [place] 1.020 (1.005-1.025) Urine Protein NEG (NEG-TRACE) MG/DL Urine Glucose (UA) NEG (NEG) MG/DL Antibody Screen Antibody Screen NEGATIVE 02/22/22 20:37 Assessment and Plan (1) Abnormal uterine bleeding: Status: Acute GC and chlamydia and BV panel taken, CBC, HCG done and CT scan shows unremarkable uterus and adnexa evidence of bilateral clips from previous tubal ligation. Discussed with the patient the different causes of abnormal bleeding including thyroid disorders, uterine and ovarian pathology, endometrial hyperpla nathalia, carcinoma and other potential causes. Discussed with the patient the work up including CBC, TSH, hCG already done. Since the patient is not current bleeding, H&H is stable, instructed the patient to schedule a close follow-up in the office to complete the workup for abnormal uterine bleeding including TSH, pelvic Ultrasound and endometrial biopsy to r/o endometrial pathology and initiate treatment plan In addition, discussed with the patient the options of treatment including Lysteda, endometrial ablation, all hormonal treatment are contraindicated in her situation given her history of breast cancer. All pros, cons, risks and benefits if each option was discussed with the patient and the patient decided to think about it and discuss it further after completing the workup in the office. All questions answered the patient verbalized understanding. (2) Abdominal pain, RLQ: Status: Acute Plan Will defer the management of abdominal pain at the right lower quadrant with the finding of ileocecal mesentery lymph nodes to the hospitalist team, consider surgical consult.
--- NOTE | 2022-02-23 09:20 | MHC.CM.PN ---
PT REPORTS SHE LIVES WITH HER SIGNIFICANT OTHER AND IS INDEPENDENT WITH CARE PT WORKS FOR [employer] AND HAS ONLY A NEBULIZER FOR DME, BUT REPORTS SHE USES IT FREQUENTLY PT REPORTS SHE DOES NOT HAVE A HCP BUT DOES HAVE A LIVING WILL-COPY REQUESTED PT UNSURE WHO HER PCP IS. SHE REPORTS SHE WAS RECENTLY ASSIGNED A NEW ONE AT [facility] IN [place], SHE THINKS THE NAME MAY BE DR CRUZ PT REPORTS SHE DID RECEIVE THE COVID-19 VACCINE AND ONE BOOSTER OBSERVATION NOTICE DELIVERED, COPY SENT TO [facility] CURRENT DC PLAN IS HOME WITH NO SERVICES PT WILL SELF-ARRANGE TRANSPORTATION
[2022-02-23 09:24] LABS: BV Int Neg Control Negative (Negative); BV Int Pos Control Positive (Positive)
[2022-02-23 09:38] LABS: CT PCR NOT DETECTED (Not Detect.); NG PCR NOT DETECTED (Not Detect.)
[2022-02-23 09:53] VITALS: BP 121/69; PULSE 67; RESP 17; TEMP 36.8; O2SAT 98
[2022-02-23 10:29] VITALS: BP 120/79; PULSE 64; RESP 12; TEMP 36.7; O2SAT 97
--- NOTE | 2022-02-23 11:13 | PM.DS ---
DS: Providers Provider Date of Service: 02/23/22 Date of admission: 02/23/22 06:30 Primary care physician: Unknown Physician Consults: 02/23/22 06:30 Consult to Obstetrics / Gynecology Routine Consulting Provider: Garrett Lipscomb Reason for consultation: pelvic pain, heavy continuous menses DS: Diagnosis Discharge Diagnosis (1) Abnormal uterine bleeding: Status: Acute (2) Abdominal pain, RLQ: Status: Acute DS: Summary Hospital Course Hospital Course: Admission note HPI This is a 31-year-old female with past medical history of asthma, presents to hospital with sudden onset significant abdominal pain.? Patient reports that she came out of a meeting at work, when she passed out, losing consciousness.? Patient reports that she has significant vaginal bleeding.? She reports that she has had her menses for the past 3 weeks nonstop, heavy bleed.? Reports that after losing consciousness in coming about, she had a significant blood loss, and had a large clot passed vaginally.? She then developed significant right pelvic pain does radiating to her back, 08/04, constant, relieved with medications received in the ED, no previous similar episode, no exacerbating factors. Patient reports that her menses is usually light, irregular but she has never had an episode where she was bleeding for 3 weeks. She reports significant nausea, few episodes of vomiting, denies any fever chills, denies any chest pain, no diarrhea constipation, no urinary symptoms and no lower extremity edema. On arrival to the ED patient hemodynamically stable with no significant abnormal lateral Labs are significant for WBC count of 15.4, hemoglobin of 11.8, ESR 27, labs otherwise unremarkable, UA is negative for any infection, chlamydia, gonorrhea, serology pending, Abdominal pelvic CT shows no acute intra-abdominal process, there are numerous right lower quadrant ileocecal mesenteric lymph nodes nonspecific, Doppler study ultrasound shows small nabothian cyst in the cervix, uterus and a very is on unremarkable Given intractable pain, nausea patient will be admitted for further evaluation Hospital course The patient was admitted to the hospital for evaluation of vaginal bleeding and abdominal pain. CT scan of the abdomen was negative for any acute findings but showed an evidence of nonspecific right lower quadrant medicine draining lymph nodes. Responded well to IV fluid and pain medication. Evaluated by electronic integrated systems mechanic Dr. Deisi Diaz who recommended outpatient follow-up in the office for evaluation and treatment of the vaginal bleeding which id is believed to be secondary to abnormal uterine bleeding. Blood work was consistent with leukocytosis which could be related to lymphadenitis process as seen on CT scan which is likely self-limited process that needs to be followed as outpatient with repeat images in few weeks by PCP. STD check showed evidence of Gardnerella which will be treated with oral antibiotics Of metronidazole for 1 week. To follow-up with PCP as outpatient to follow on With repeat CT scan to evaluate findings of right lower quadrant numerous lymph nodes to follow-up with gynecology as scheduled continue treatment for 1 week for infection. Time Spent with Patient Time attestation: Total time spent providing and/or coordinating discharge services: Discharge coordination time: Greater than 30 minutes Quality: Safe Use of Opioids Does Pt have an Active Cancer Diagnosis on the Problem List?: No Quality: Stroke Does the patient have a stroke diagnosis?: No Physical Exam Vital Signs: Vital Signs: Last Vital Signs Temp 98.1 F 02/23/22 10:29 Pulse 64 02/23/22 10:29 Resp 12 02/23/22 10:29 BP 120/79 02/23/22 10:29 Pulse Ox 97 02/23/22 10:29 BMI result Body Mass Index 34.2 Const: Other: Constitutional : Alert, oriented, not in distress Neck : Normal inspection, Supple Cardiovascular : RRR, no JVP, no lower extremity edema Respiratory : fair bilateral air entry, no crackles, wheezes or rhonchi Gastrointestinal: soft, lax, Normal bowel sounds, Non tender, no surgical signs Skin : Warm, Dry Neurological : Alert & oriented x3, No focal deficit , CN 2-12 within normal DS: Data Data Completed and Pending Labs on day of discharge: Laboratory Results - last 24 hr 02/22/22 02/22/22 02/22/22 18:41 18:43 18:43 WBC 13.1 H RBC 3.89 L Hgb 12.6 Hct 35.7 L MCV 91.8 MCH 32.4 MCHC 35.3 H RDW 12.4 Plt Count 383 MPV 8.5 L Immature Gran % (Auto) 0.3 Neut % (Auto) 53.1 Lymph % (Auto) 36.5 [place] % (Auto) 8.3 Eos % (Auto) 1.6 Baso % (Auto) 0.2 Lymph # (Auto) 4.8 [place] # (Auto) 1.1 Eos # (Auto) 0.2 Baso # (Auto) 0.0 Abs Immat Gran (auto) 0.04 H Absolute Neuts (auto) 7.0 Absolute Nucleated RBC 0.000 Nucleated RBC % (auto) 0.0 Smear Tech's Comments ESR PT INR Sodium 135 Potassium 4.9 D Chloride 106 Carbon Dioxide 21 L Anion Gap 13 BUN 9 Creatinine 0.73 Estim Creat Clear Calc 102.2 Estimated GFR > 60 Random Glucose 89 Lactic Acid 1.4 Calcium 9.6 Magnesium 2.0 Total Bilirubin 0.3 AST 23 ALT 31 Alkaline Phosphatase 80 Troponin I High Sens C-Reactive Protein Total Protein 7.9 Albumin 4.1 Lipase 26 Beta HCG, Quant Urine Color Urine Appearance Urine pH Ur Specific [place] Urine Protein Urine Glucose (UA) Urine Ketones Urine Blood Urine Nitrite Ur Leukocyte Esterase Urine RBC Urine WBC Ur Squamous Epith Cells Urine Bacteria Urine Mucus [place] species DNA Chlam trachomat DNA PCR COVID-19 ([facility]) COVID-19 Clin Com Gardnerella DNA Probe N.gonorrhoeae DNA (PCR) Trichomonas DNA Probe Blood Type Antibody Screen 02/22/22 02/22/22 02/22/22 18:43 18:43 18:56 WBC RBC Hgb Hct MCV MCH MCHC RDW Plt Count MPV Immature Gran % (Auto) Neut % (Auto) Lymph % (Auto) [place] % (Auto) Eos % (Auto) Baso % (Auto) Lymph # (Auto) [place] # (Auto) Eos # (Auto) Baso # (Auto) Abs Immat Gran (auto) Absolute Neuts (auto) Absolute Nucleated RBC Nucleated RBC % (auto) Smear Tech's Comments ESR PT INR Sodium Potassium Chloride Carbon Dioxide Anion Gap BUN Creatinine Estim Creat Clear Calc Estimated GFR Random Glucose Lactic Acid Calcium Magnesium Total Bilirubin AST ALT Alkaline Phosphatase Troponin I High Sens C-Reactive Protein Total Protein Albumin Lipase Beta HCG, Quant < 2 Urine Color Urine Appearance Urine pH Ur Specific [place] Urine Protein Urine Glucose (UA) Urine Ketones Urine Blood Urine Nitrite Ur Leukocyte Esterase Urine RBC Urine WBC Ur Squamous Epith Cells Urine Bacteria Urine Mucus [place] species DNA Negative Chlam trachomat DNA PCR COVID-19 ([facility]) Negative COVID-19 Clin Com See Note Gardnerella DNA Probe Positive A N.gonorrhoeae DNA (PCR) Trichomonas DNA Probe Negative Blood Type Antibody Screen 05/31/22 05/31/22 05/31/22 18:57 20:36 20:37 WBC RBC Hgb Hct MCV MCH MCHC RDW Plt Count MPV Immature Gran % (Auto) Neut % (Auto) Lymph % (Auto) [place] % (Auto) Eos % (Auto) Baso % (Auto) Lymph # (Auto) [place] # (Auto) Eos # (Auto) Baso # (Auto) Abs Immat Gran (auto) Absolute Neuts (auto) Absolute Nucleated RBC Nucleated RBC % (auto) Smear Tech's Comments ESR PT 10.7 INR 0.9 Sodium Potassium Chloride Carbon Dioxide Anion Gap BUN Creatinine Estim Creat Clear Calc Estimated GFR Random Glucose Lactic Acid Calcium Magnesium Total Bilirubin AST ALT Alkaline Phosphatase Troponin I High Sens C-Reactive Protein Total Protein Albumin Lipase Beta HCG, Quant Urine Color Urine Appearance Urine pH Ur Specific [place] Urine Protein Urine Glucose (UA) Urine Ketones Urine Blood Urine Nitrite Ur Leukocyte Esterase Urine RBC Urine WBC Ur Squamous Epith Cells Urine Bacteria Urine Mucus [place] species DNA Chlam trachomat DNA PCR NOT DETECTED COVID-19 ([facility]) COVID-19 Clin Com Gardnerella DNA Probe N.gonorrhoeae DNA (PCR) NOT DETECTED Trichomonas DNA Probe Blood Type A Positive Antibody Screen NEGATIVE 02/22/22 02/22/22 02/22/22 21:35 21:35 23:46 WBC 15.4 H RBC 3.65 L Hgb 11.8 L Hct 33.7 L MCV 92.3 MCH 32.3 MCHC 35.0 RDW 12.3 Plt Count 337 MPV 8.4 L Immature Gran % (Auto) 0.4 Neut % (Auto) 58.2 Lymph % (Auto) 32.9 [place] % (Auto) 7.4 Eos % (Auto) 0.9 Baso % (Auto) 0.2 Lymph # (Auto) 5.1 H [place] # (Auto) 1.1 Eos # (Auto) 0.1 Baso # (Auto) 0.0 Abs Immat Gran (auto) 0.06 H Absolute Neuts (auto) 9.0 H Absolute Nucleated RBC 0.000 Nucleated RBC % (auto) 0.0 Smear Tech's Comments VERIFIED ESR PT INR Sodium Potassium Chloride Carbon Dioxide Anion Gap BUN Creatinine Estim Creat Clear Calc Estimated GFR Random Glucose Lactic Acid Calcium Magnesium Total Bilirubin AST ALT Alkaline Phosphatase Troponin I High Sens < 3.5 C-Reactive Protein Total Protein Albumin Lipase Beta HCG, Quant Urine Color YELLOW Urine Appearance CLEAR Urine pH 6.0 Ur Specific [place] 1.020 Urine Protein NEG Urine Glucose (UA) NEG Urine Ketones NEG Urine Blood 3+ H Urine Nitrite NEG Ur Leukocyte Esterase NEG Urine RBC 1-4 Urine WBC 1-4 Ur Squamous Epith Cells 1+ Urine Bacteria 2+ Urine Mucus 2+ [place] species DNA Chlam trachomat DNA PCR COVID-19 ([facility]) COVID-19 Clin Com Gardnerella DNA Probe N.gonorrhoeae DNA (PCR) Trichomonas DNA Probe Blood Type Antibody Screen 02/23/22 02/23/22 03:14 03:14 WBC RBC Hgb Hct MCV MCH MCHC RDW Plt Count MPV Immature Gran % (Auto) Neut % (Auto) Lymph % (Auto) [place] % (Auto) Eos % (Auto) Baso % (Auto) Lymph # (Auto) [place] # (Auto) Eos # (Auto) Baso # (Auto) Abs Immat Gran (auto) Absolute Neuts (auto) Absolute Nucleated RBC Nucleated RBC % (auto) Smear Tech's Comments ESR 27 H PT INR Sodium Potassium Chloride Carbon Dioxide Anion Gap BUN Creatinine Estim Creat Clear Calc Estimated GFR Random Glucose Lactic Acid Calcium Magnesium Total Bilirubin AST ALT Alkaline Phosphatase Troponin I High Sens C-Reactive Protein 0.54 H Total Protein Albumin Lipase 20 Beta HCG, Quant Urine Color Urine Appearance Urine pH Ur Specific [place] Urine Protein Urine Glucose (UA) Urine Ketones Urine Blood Urine Nitrite Ur Leukocyte Esterase Urine RBC Urine WBC Ur Squamous Epith Cells Urine Bacteria Urine Mucus [place] species DNA Chlam trachomat DNA PCR COVID-19 ([facility]) COVID-19 Clin Com Gardnerella DNA Probe N.gonorrhoeae DNA (PCR) Trichomonas DNA Probe Blood Type Antibody Screen Discharge Plan Discharge Patient Disposition: Home, Self-Care Discharge Diagnosis: Abnormal uterine bleeding Referrals: Physician,Unknown J [Primary Care Provider] - 1 Week Discharge Medications: Continued multivitamin Tablet 1 tab PO DAILY 0RF montelukast 10 mg Tablet 10 mg PO BEDTIME 0RF albuterol sulfate [ProAir HFA] 90 mcg/actuation Hfa Aerosol Inhaler 2 puff INHALATION Q4H PRN (Reason: Shortness Of Breath) 0RF albuterol sulfate 2.5 mg /3 mL (0.083 %) Solution For Nebulization 2.5 mg INHALATION Q4H PRN (Reason: Shortness Of Breath) 0RF fluticasone propion-salmeterol [Advair Diskus] 100-50 mcg/dose Blister With Device 1 inh INHALATION BID 0RF acetaminophen [Tylenol] 325 mg capsule 650 mg PO Q6H PRN (Reason: pain) Qty: 20 0RF Discharge Orders: Discharge Order (Routine); Ordered 02/23/22 Ordered By: Dave Arias Diet: advance to usual diet Activity on Discharge: As tolerated Stand Alone Forms: Patient Portal Discharge page Care Plan Goals: Read below Health Concerns: Read below Plan of Treatment: to follow-up with Dr. Lipscomb at the office for further evaluation. Assessment: You were evaluated for abdominal pain and vaginal bleeding. CT scan of the abdomen showed no acute intra-abdominal illness. Evaluated by electronic integrated systems mechanic who recommended outpatient follow-up for proper gynecological evaluation with treatment. To follow-up with PCP as outpatient to follow on With repeat CT scan to evaluate findings of right lower quadrant numerous lymph nodes to follow-up with gynecology as scheduled.
--- NOTE | 2022-02-23 11:36 | MHC.CM.PN ---
Received notification patient will be d/c'd home without services. Patient will arrange her own transport.
== END 2022-02-23 11:57 | disposition home or self-care (01) ==
LOC: HO.ED 02-23 03:44 → HO.EDOVER 02-23 06:35
PROVIDERS: Physician Assistant; Admitting Provider Internal Medicine; Emergency Provider Emergency Medicine; Visit Provider Student in an Organized Health Care Education/Training Program
DX: N93.9 Abnormal uterine and vaginal bleeding, unspecified (principal); R10.31 Right lower quadrant pain; R55 Syncope and collapse; N91.5 Oligomenorrhea, unspecified; N88.8 Other specified noninflammatory disorders of cervix uteri; D72.829 Elevated white blood cell count, unspecified; B96.89 Other specified bacterial agents as the cause of diseases classified elsewhere; R59.0 Localized enlarged lymph nodes; M47.812 Spondylosis without myelopathy or radiculopathy, cervical region; J45.909 Unspecified asthma, uncomplicated; F41.9 Anxiety disorder, unspecified; Z20.822 Contact with and (suspected) exposure to COVID-19; Z85.3 Personal history of malignant neoplasm of breast; Z98.51 Tubal ligation status; Z67.11 Type A blood, Rh negative; Z83.3 Family history of diabetes mellitus; Z82.49 Family history of ischemic heart disease and other diseases of the circulatory system; Z79.899 Other long term (current) drug therapy
CPT/HCPCS: 36415; 70450; 72125; 74176; 80053; 81001; 83605; 83690; 83735; 84484; 84702; 85025; 85610; 85652; 86140; 86850; 86900; 86901; 87040; 87480; 87491; 87510; 87591; 87635; 87660; 93975; 96361; 96374; 96375; 96376; 99218; 99284; 99285; J2270; J2405